=== PATIENT | male | born 1960 | race Caucasian/White ===

== ENCOUNTER 2016-07-16 11:09 | Observation (INO) | payer MEDICAID ==
[~2016-07-16] VITALS: Ht 175.3 cm; Wt 91.3 kg
[~2016-07-16 11:09] MED LIST: AMBIEN10 MG PO; KLONOPIN0.5 MG PO; MICARDIS HCT 81 EACH PO; NORVASC5 MG
[2016-07-16 11:46] LABS: BASOPHILS 0.2 % (0.0-2.0); EOSINOPHILS 0.5 % (0-7); HEMATOCRIT 45.1 % (42.0-54.0); HEMOGLOBIN 15.5 g/dL (13.5-17.5); IMMATURE GRANULOCYTES 0.2 % (0-5); LYMPHOCYTES 24.9 % (15-50); MCH 31.6 pg (26.0-34.0); MCHC 34.4 g/dL (31.0-37.0); MCV 91.9 fL (80.0-100.0); MEAN PLATELET VOLUME 10.6 fL (7.4-10.4); MONOCYTES 5.1 % (2-11); NEUTROPHILS 69.1 % (40-80); PLATELET COUNT 304 10x3/uL (130-400); RBC 4.91 10x6/uL (4.20-6.10); RDW 12.8 % (11.5-14.5); WBC 8.8 10x3/uL (4.8-10.8)
[2016-07-16 12:06] LABS: ALKALINE PHOSPHATASE 92 U/L (46-116); ALT (SGPT) 23 U/L (10-68); CALC OSMOLALITY 276 mosm/kg (275-300); CALCIUM 9.1 mg/dL (8.5-10.1); CHLORIDE - SERUM 102 mmol/L (98-107); CREATININE - SERUM 0.8 mg/dL (0.6-1.3); GLUCOSE 113 mg/dL (74-106); POTASSIUM - SERUM 3.5 mmol/L (3.5-5.1); PROTEIN - SERUM 7.5 g/dL (6.4-8.2); SODIUM 138 mmol/L (136-145); UREA NITROGEN 13 mg/dL (7-18); eGFR NON AFRICAN AMERICAN > 90 mL/min (90-120)
[2016-07-16 12:17] LABS: CREATINE KINASE 209 UL (21-232); TROPONIN-I < 0.017 ng/mL (0.000-0.060)
[2016-07-16 13:42] LABS: CREATINE KINASE 198 UL (21-232)
[2016-07-16 13:48] LABS: TROPONIN-I < 0.017 ng/mL (0.000-0.060)
--- NOTE | 2016-07-16 14:33 | NUR ---
TRANSFER FROM ER BY W/C. GUSTAVOINTED TO ROOM. CALL LIGHT IN REACH. WILL CONT. PLAN OF CARE.
[2016-07-16 14:37] VITALS: BP 146/82; BMI 28.9
[2016-07-16 19:00] VITALS: BP 122/70
[2016-07-16 19:11] LABS: CREATINE KINASE 166 UL (21-232)
[2016-07-16 19:13] LABS: TROPONIN-I < 0.017 ng/mL (0.000-0.060)
[2016-07-17] VITALS: BP 120/66
[2016-07-17 02:26] LABS: CREATINE KINASE 142 UL (21-232)
[2016-07-17 02:30] LABS: TROPONIN-I < 0.017 ng/mL (0.000-0.060)
--- NOTE | 2016-07-17 03:59 | NUR ---
PT RESTING IN BED WITH EYES CLOSED. NO DISTRESS. SR PER TELEMETRY. NPO UNTIL SEEN BY ACCOUNT SERVICES ANALYST. CPOC. CALL LIGHT IN REACH.
[2016-07-17 04:00] VITALS: BP 134/73
[2016-07-17 05:20] LABS: CALC OSMOLALITY 281 mosm/kg (275-300); CALCIUM 8.4 mg/dL (8.5-10.1); CARBON DIOXIDE 26.1 mmol/L (21.0-32.0); CHLORIDE - SERUM 105 mmol/L (98-107); CREATININE - SERUM 0.8 mg/dL (0.6-1.3); GLUCOSE 109 mg/dL (74-106); SODIUM 141 mmol/L (136-145); UREA NITROGEN 12 mg/dL (7-18); eGFR NON AFRICAN AMERICAN > 90 mL/min (90-120)
[2016-07-17 07:44] VITALS: BP 124/72
--- NOTE | 2016-07-17 08:22 | NUR ---
ASSESSMENT COMPLETED. DENIES ANY NEEDS. TELEMERTY SHOWS SR. SL TO LEFT HAND. FAMILY AT BEDSIDE WITH CALL LIGHT IN REACH
[2016-07-17 10:30] VITALS: Ht 175.3 cm; Wt 91.3 kg
--- NOTE | 2016-07-17 10:34 | NUR ---
LYING QUIETLY. AWAITING DOCTOR. CALL LIGHT IN REACH WITH SR UP. DENIES ANY NEEDS
[2016-07-17 11:25] VITALS: BP 139/68
--- NOTE | 2016-07-17 11:51 | NUR ---
LYING QUIETLY. NO NEEDS VOICED. CALL LIGHT IN REACH WITH SR UP. WILL MONITOR
[2016-07-17] MEDS ORDERED: BAYER CHEWABLE81 MG PO (13:22)
--- NOTE | 2016-07-17 14:34 | NUR ---
PT DISCHARGED. IV DCD WITH TIP INTACT. INSTRUCTIONS GIVEN TO PT AND FAMILY. TO PRIVATE CAR PER WHEEL CHAIR
== END 2016-07-17 14:45 | disposition home or self-care (01) ==
LOC: D.ER 11:09 → D.M2 13:20 → OBSVTIME 13:20 → D.M2 07-17 14:45
PROVIDERS: Family Medicine; ADMIT Family Medicine
DX: R07.9 Chest pain, unspecified (principal); I10 Essential (primary) hypertension; E87.6 Hypokalemia; Z87.891 Personal history of nicotine dependence

== ENCOUNTER 2016-07-25 14:41 | Inpatient (IN) | payer MEDICAID ==
[~2016-07-25] VITALS: Ht 175.3 cm; Wt 92.8 kg
--- NOTE | ~2016-07-25 | CN ---
PATIENT NAME:TEVIN REY MEDICAL RECORD: [id number] : 56 LOCATION:. D.2120 ADMIT DATE: 07/25/16 ACCOUNT: [id number] CONSULTING PHYSICIAN: EDUARDO DC MD REFERRING PHYSICIAN: NIRMAL HELLER DO DATE OF CONSULTATION: 07/25/2016 Cardiology Consultation ADMITTING DIAGNOSIS: Chest pain compatible with angina. HISTORY OF PRESENT ILLNESS: Mr. Rey presented last week with ongoing chest pain. He was discharged for followup with stress testing; however, has continued to have chest pain. He had quite severe episode of chest pain today with exertion. His EKG is with no acute ST-T abnormalities. Troponin is pending. PHYSICAL EXAMINATION: GENERAL APPEARANCE: Well-nourished, well-developed, appears stated age. Level of distress, comfortable. PSYCHIATRIC: Mental status, alert, normal affect. Orientation, oriented to time, place and person. EYES: Lids and conjunctiva, noninjected. No discharge, no pallor. ENT: Lips, teeth, gums, normal dentition. Oropharynx, no cyanosis, no pallor. NECK: Carotid arteries, bilateral normal upstroke, no bruits, no thrills. JUGULAR VEINS: No jugular venous pressure or distention. CERVICAL LYMPH NODES: Nontender, nonenlarged. THYROID: Not enlarged. Nontender. No nodules. LUNGS: Respiratory effort, unlabored. CHEST: Normal curvature. No thoracic deformity. No chest wall tenderness. Percussion, resonant. Auscultation, clear. No wheezes, no rales, no rhonchi. CARDIOVASCULAR: Precordial exam, nondisplaced. No heaves or pericardial thrills. Rate and rhythm, regular. Heart sounds, normal S1, normal S2. No S3, no gallop, no rub. Systolic murmur, not heard. Diastolic murmur, not heard. EXTREMITIES: No cyanosis, no edema. Peripheral pulses, full and equal in all extremities, except as noted. No bruits appreciated. ABDOMEN: Soft, nondistended. Normal aorta. No bruit. Nontender. No masses. Liver, nontender, no hepatomegaly. Spleen, nontender, no splenomegaly. MUSCULOSKELETAL: No joint tenderness. No joint swelling. No erythema. NEUROLOGICAL: Normal gait, normal strength, normal tone. SKIN: Warm and dry. REVIEW OF SYSTEMS: The patient reports easy bruising but reports no swollen glands. The patient reports no fever, no night sweats, no significant weight gain, no significant weight loss. No significant exercise tolerance. The patient reports no dry eyes, no irritation, no vision change. Patient reports no difficulty hearing and no ear pain. Patient reports no frequent nose bleeds or nose and sinus problems. Patient reports on arm pain on exertion. No shortness of breath while lying down. No history of heart murmur. Patient reports no cough, no wheezing or coughing up blood. Patient reports no abdominal pain, no vomiting. Normal appetite. No diarrhea and not vomiting blood. No nausea and no constipation. Patient reports no incontinence. No difficulty urinating. No hematuria. No increased frequency. Patient reports no muscle aches. No weakness, no arthralgias, no back pain. No swelling of the extremities. Patient reports no abnormal mole, no jaundice, no rashes. Reports CONSULT REPORT [id number] TEVIN REY no loss of consciousness. No weakness and no numbness. No seizures, dizziness, or headaches. The patient reports no depression, no sleep disturbance, feeling safe in a relationship and no alcohol abuse. Patient reports on fatigue. Reports no runny nose or sinus pressure. No itching, no hives, and no frequent sneezing. OVERALL IMPRESSION: Ongoing chest pain in a worsening fashion. At this time, we will proceed with coronary angiography. Further care depends upon findings of the angiography. TRANSINT:[id number] Voice Confirmation ID: [id number] DOCUMENT ID: [id number] EDUARDO DC MD CC: [id number] DICTATION DATE: 07/25/161656 SMOKING TOBACCO CUTTER OPERATOR: 07/25/16 [address] [facility] [place] [id number] [place] [address]
--- NOTE | ~2016-07-25 | DS ---
PATIENT:TEVIN REY :56 MEDICAL RECORD: [id number] DISCHARGE SUMMARY ADMISSION DATE: 07/25/16 DISCHARGE DATE: 07/26/16 DISCHARGE DIAGNOSES: 1. Angina. 2. Coronary artery disease. 3. Percutaneous transluminal coronary angioplasty stent to left anterior descending on this admission. 4. Hypertension. 5. Hyperlipidemia. HOSPITAL COURSE: Mr. Rey presents with anginal symptomatology, found to have significant disease of the LAD, underwent successful PTCA stent of the LAD, had an uneventful postop course. He was discharged home with the addition of aspirin, Plavix, Pravachol to his medical regimen. He will follow up with [facility] in 1 month. TRANSINT:[id number] Voice Confirmation ID: [id number] DOCUMENT ID: [id number] EDUARDO DC MD CC: [id number] DICTATION DATE: 07/26/161054 LUSTER APPLICATOR: 07/26/16 2300 DIS IN 07/26/16 [facility] [address] [place] [address]
--- NOTE | ~2016-07-25 | HEMODYNAMI ---
PATIENT:TEVIN FERNANDES MEDICAL RECORD: [id number] : 56 [address] CL[address]ICT# [id number] ADMISSION DATE: 07/25/16 Generatedon:07/26/201610:57 Patient name: TEVIN FERNANDES Patient #: [id number] SSN: DO B: 1960 Date of study: 07/26/2016 Page: Of Hemodynamic Procedure Report Patient Data Patient Demographics Procedure consent was obtained First Name: TEVIN Gender: Male Last Name: DENA : 1960 [facility] Initial: Marii Rodriguez Age: 56 year(s) Patient #: [id number] Race: Unknown Additional ID: [id number] Contact details [address]: [address] [place] [address] State: [place] City: [place] Zip code: [address] Past Medical History Allergies: No known allergies Admission Admission Data Admission Date: 07/25/2016 Admission Time: 14:41 Room #: 2120 Procedure Procedure Types Cath Procedure Diagnostic Procedure LHC [facility] w/Coronaries FFR/IVUS Intra-Coronary IVUS Initial PCI Procedure Coronary Stent Initial Miscellaneous Procedures Moderate Sedation up to 30 minutes Procedure Description Procedure Date Procedure Date: 07/26/2016 Procedure Start Time: 10:33 Procedure End Time: 10:55 Procedure Staff Name Function Rey Nicole MD Performing Physician Kelsie North RT Scrub Dayday Hart RN Nurse Archie Cortez RT Monitor Procedure Data Cath Procedure Fluoroscopy Diagnostic fluoroscopy Total fluoroscopy Time: 7.6 time: 7.6 min min Diagnostic fluoroscopy Total fluoroscopy dose: 991 dose: 991 mGy mGy Contrast Material Contrast Material Type Amount (ml) Isovue 300 135 Entry Location Entry Primary Successful Side Size Upsize Upsize Entry Closure Goldberg ccessful Closure Location (Fr) 1 (Fr) 2 (Fr) Remarks Device Remarks Radial Right 6 Fr Mechanical artery Short Compression Estimated blood loss: 10 ml Diagnostic catheters Device Type Used For End Catheter Placement Terumo 5Fr Canton 110cm Procedure catheter Diagnostic Infinity 5Fr Procedure JL 3.5 catheter Procedure Complications No complications Procedure Medications Medication Administration Route Dosage Oxygen NC 2 l/min Heparin Flush Bag added to field 2 bags (1000units/500ml NS) 0.9% NaCl I.V. 100 ml/hr Radial Cocktail added to field 1 syringe (Verapomil 2mg/Nitro 400mcg/Heparin 1500units) Fentanyl I.V. 50 mcg Versed I.V. 1 mg Radial Cocktail I.A. 1 syringe (Verapomil 2mg/Nitro 400mcg/Heparin 1500units) Heparin Bolus I.V. 4000 units Fentanyl I.V. 50 mcg Versed I.V. 1 mg Plavix P.O. 75 mg Hemodynamics Rest Heart Rate: 52 (bpm) Snapshots Pre Cath Intra NCS Post Cath Vital Signs Time Heart Resp SPO2 etCO2 DX0bpsd NIBP (mmHg) Rhythm Pain Sedation Rate (ipm) (%) (mmHg) (mmHg) Status Level (bpm) 10:19:55 56 20 100 0 0 134/81(112) NSR 0 (11) 10(A) , No pain 10:24:09 52 19 100 0 0 138/80(94) NSR 0 (11) 10(A) , No pain 10:28:27 59 17 98 0 0 125/75(87) NSR 0 (11) 10(A) , No pain 10:32:39 57 17 96 0 0 129/72(98) NSR 0 (11) 10(A) , No pain 10:36:51 65 18 92 0 0 101/61(92) NSR 0 (11) 9(A) , No pain 10:40:55 67 19 95 0 0 117/71(98) NSR 0 (11) 9(A) , No pain 10:45:08 63 17 95 0 0 113/57(98) NSR 0 (11) 9(A) , No pain 10:49:21 61 19 94 0 0 108/58(92) NSR 0 (11) 9(A) , No pain 10:53:30 67 18 96 0 0 108/60(78) NSR 0 (11) 9(A) , No pain 10:56:06 63 16 97 0 0 113/63(86) NSR 0 (11) 10(A) , No pain Medications Time Medication Route Dose Verified Delivered Reason Note s Effectiveness by by 10:23:54 Oxygen NC 2 l/min Dayday Naylor Per physician Tanner Hrat RN RN 10:24:06 Heparin Flush added 2 bags Dayday Naylor used for Bag to Tanner Hart RN procedure (1000units/500ml field RN NS) 10:24:18 0.9% NaCl I.V. 100 Dayday Naylor Per physician ml/hr Tanner Hart RN RN 10:24:39 Radial Cocktail added 1 Dayday Naylor used for (Verapomil to syringe Tanner Hart RN procedure 2mg/Nitro field RN 400mcg/Heparin 1500units) 10:33:24 Fentanyl I.V. 50 mcg Dayday Naylor for sedation Tanner Hart RN RN 10:33:31 Versed I.V. 1 mg Dayday Naylor for sedation Tanner Hart RN RN 10:34:42 Radial Cocktail I.A. 1 Dayday Rey for (Verapomil syringe Tanner Nicole MD vasodilation 2mg/Nitro RN 400mcg/Heparin 1500units) 10:46:16 Heparin Bolus I.V. 4000 Dayday Naylor for units Tanner Hart RN anticoagulation RN 10:46:50 Fentanyl I.V. 50 mcg Dayday Naylor for sedation Tanner Hart RN RN 10:46:54 Versed I.V. 1 mg Dayday Naylor for sedation Tanner Hart RN RN 10:55:14 Plavix P.O. 75 mg Dayday Naylor for Tanner Hart RN antiplatelet RN therapy Procedure Log Time Note 9:52:42 Dayday Hart RN sent for patient. Start room use. 10:05:10 Time tracking: Call back 10:05:14 Plan of Care:Hemodynamics will remain stable., Cardiac rhythm will remain stable., Comfort level will be maintained., Respiratory function will remain adequate., Patient/ family verbilizes understanding of procedure., Procedure tolerated without complication., Recovers from procedure without complications.. 10:11:36 Patient received from PCU to CCL 1 Alert and oriented. Tansferred to table in Supine position. 10:11:37 Warm blankets applied, and mary alice hugger turned on for patient comfort. 10:11:37 Correct patient and procedure confirmed by team. 10:11:38 Signed procedure consent form obtained from patient. 10:11:39 ECG and BP/O2 sat monitors applied to patient. 10:11:40 Full Disclosure recording started 10:18:42 Vital chart was started 10:23:54 Oxygen 2 l/min NC was administered by Dayday Hart RN; Per physician; 10:23:59 Baseline sample Acquired. 10:24:02 Rhythm: sinus rhythm 10:24:06 Heparin Flush Bag (1000units/500ml NS) 2 bags added to field was administered by Dayday Hart RN; used for procedure; 10:24:10 H&P Date Dictated: 07/25/2016 Within 30 days and on chart.. 10:24:11 Pre-procedure instructions explained to patient. 10:24:11 Pre-op teaching completed and patient verbalized understanding. 10:24:13 Family in patients room. 10:24:14 Patient NPO since Midnight. 10:24:18 0.9% NaCl 100 ml/hr I.V. was administered by Dayday Hart RN; Per physician; 10:24:22 Patient allergic to No known allergies 10:24:24 Is the patient allergic to Iodine/contrast media? No. 10:24:26 Is patient on blood thinner?Yes 10:24:28 ACC The patient was administered the following blood thiners within the last 24 hours: ACCPlavix 10:24:30 Patient diabetic? No. 10:24:36 Previous problem with sedation/anesthesia? No ? 10:24:37 Snore? Yes 10:24:38 Sleep apnea? No 10:24:38 Deviated septum? No 10:24:39 Radial Cocktail (Verapomil 2mg/Nitro 400mcg/Heparin 1500units) 1 syringe added to field was administered by Dayday Hart RN; used for procedure; 10:24:45 Opens mouth fully? Yes 10:24:46 Sticks out tongue? Yes 10:24:48 Airway obstruction? No ? 10:24:50 Dentures? No ? 10:24:52 Modified Andrew's test Ulnar < 7 seconds 10:24:54 Patient pain scale 0/10 ?. 10:24:58 IV patent on arrival in right hand with 0.9% NaCl at [facility]. 10:26:51 Lab Result : Creatinine 0.8 mg/dl 10::51 Lab Result : BUN 15 mg/dl 10::51 Lab Result : Hemoglobin 14.7 g/dl 10::51 Lab Result : Hematocrit 44.4 % 10::56 Lab results completed and on chart. 10::59 Right Radial & Right Groin area was prepped with chlora-prep and draped in sterile fashion 10:27:00 Alarms reviewed by R. N. 10:27:00 Sharps counted by scrub and verified by R.N. 10:27:03 Use device set Radial Dx 10:27:04 Tegaderm 4 x 4 opened to sterile field. 10:27:04 Acist Manifold opened to sterile field. 10:27:05 Acist Hand Control opened to sterile field. 10:27:06 Acist Syringe opened to sterile field. 10:27:06 Medline Cath Pack opened to sterile field. 10:27:07 Bag Decanter opened to sterile field. 10:27:07 Terumo 6Fr Slender Glidesheath opened to sterile field. 10:27:07 St Cheko 260cm J .035 wire opened to sterile field. 10:30:37 Physician paged 10::41 Physician arrived 10::42 --------ALL STOP TIME OUT------ 10:30:42 Final Timeout: patient, procedure, and site verified with staff and physician. All members of the team are in agreement. 10::44 Right Radial & Right Groin site verified by team. 10:30:47 Physical assessment completed. ASA score P 2 - A patient with mild systemic disease as per Rey Nicole MD. 10:31:38 Sedation plan: IV Moderate Sedation Versed, Fentanyl 10::45 Zero performed for pressure channel P1 10:33:24 Fentanyl 50 mcg I.V. was administered by Dayday Hart RN; for sedation; 10::31 Versed 1 mg I.V. was administered by Dayday Hart RN; for sedation; 10:33:39 Procedure started. 10:33:44 Local anesthetic to right radial artery with Lidocaine 2% by Rey Nicole MD.INITIAL ACCESS ONLY 10:34:31 A 6 Fr Short sheath was inserted into the Right Radial artery 10:34:42 Radial Cocktail (Verapomil 2mg/Nitro 400mcg/Heparin 1500units) 1 syringe I.A. was administered by Rey Nicole MD; for vasodilation; 10:35:32 A Terumo 5Fr Canton 110cm catheter was advanced over the wire and used for Procedure. 10:35:46 LV gram done using MAIER 10:36:01 Injector settings: Ml/sec: 5, Volume: 15, 10:36:14 EF : 60 % 10:36:20 LCA angiography performed. 10:38:00 RCA angiography performed. 10:38:06 Catheter exchanged over wire. 10:38:10 A Diagnostic Infinity 5Fr JL 3.5 catheter was advanced over the wire and used for Procedure. 10:39:21 RCA angiography performed. 10:40:03 Scioderm BasixCompak Inflation Kit opened to sterile field. 10:40:04 León Whisper J 300cm 0.014 guide wire opened to sterile field. 10:40:08 Ashley Tetlin Eagleye IVUS Catheter opened to sterile field. 10:40:39 Cordis 6FR XBLAD 3.5 guide catheter opened to sterile field. 10:40:42 Catheter removed. 10:40:50 6 Fr xblad 3.5 guide catheter was inserted over the wire 10:41:52 whisper wire advanced. 10:42:31 Wire advanced across lesion. 10:42:35 IVUS catheter advanced over wire. 10:43:03 IVUS pass to LAD lesion performed. 10:46:01 IVUS catheter removed over wire. 10:46:16 Heparin Bolus 4000 units I.V. was administered by Dayday Hart RN; for anticoagulation; 10:46:50 Fentanyl 50 mcg I.V. was administered by Dayday Hart RN; for sedation; 10:46:54 Versed 1 mg I.V. was administered by Dayday Hart RN; for sedation; 10:48:29 Inflation Number: 1 A Medtronic Integrity 3.5 X 22 stent was prepped and advanced across the Prox LAD. The stent was deployed at 13 CHINO for 0:10 (min:sec). 10:49:38 Stent catheter was removed intact over wire. 10:51:13 Inflation Number: 1 A Medtronic Integrity 3.5 X 15 stent was prepped and advanced across the Mid LAD. The stent was deployed at 13 CHINO for 0:10 (min:sec). 10:51:59 Stent catheter was removed intact over wire. 10:52:02 Wire removed. 10:52:03 Guide catheter removed. 10:52:30 Terumo TR Band Standard opened to sterile field. 10:52:39 Sheath removed intact; hemostasis achieved with Mechanical Compression to the Right Radial artery. 10:52:42 Procedure ended.(Physican Out) 10:52:57 Fluoroscopy time 07.60 minutes. 10:53:08 Fluoroscopy dose: 991 mGy 10:53:08 Flurop Dose total: 991 10:53:11 Contrast amount:Isovue 300 135ml. 10:53:12 Sharps counted by scrub and verified by R.N. 10:53:16 TR band inflated with 12cc of air. 10:53:17 Insertion/operative site no bleeding no hematoma. 10:53:21 Post right radial artery:stable, clean and dry 10:53:28 Post Procedure Pulses reassessed and unchanged 10:53:35 Post-procedure physical assessment completed. ASA score P 2 - A patient with mild systemic disease as per Rey Nicole MD. 10:53:38 Post procedure rhythm: unchanged. 10:53:40 Estimated blood loss: 10 ml 10:53:42 Post procedure instruction explained to patient.Patient verbalizes understanding. 10:53:42 Patient needs reinforcement of post procedure teaching. 10:54:39 Procedure type changed to Cath procedure, Diagnostic procedure, LHC, LHC w/Coronaries, FFR/IVUS, Intra-Coronary IVUS Initial, PCI procedure, Coronary Stent Initial, Miscellaneous Procedures, Moderate Sedation up to 30 minutes 10:55:07 Procedure and supply charges have been captured, reviewed, submitted and are correct. 10:55:10 Procedure Complication : No complications 10:55:13 Vital chart was stopped 10:55:14 Plavix 75 mg P.O. was administered by Dayday Hart RN; for antiplatelet therapy; 10:55:14 See physician's report for complete and final results. 10:55:15 Report given to PCU. 10:55:18 Patient transfered to PCU with Stretcher. 10:55:20 Procedure ended. 10:55:20 Full Disclosure recording stopped 10:55:59 End room use (Document Last) Intervention Summary Intervention Notes Time ActionType Lesion and Equipment Action# Pressure Duration Attributes Used 10:48:29 Place stent Prox LAD Medtronic 1 13 00:10 Integrity 3.5 X 22 stent 10:51:13 Place stent Mid LAD Medtronic 1 13 00:10 Integrity 3.5 X 15 stent Device Usage Item Name Manufacture Quantity Catalog Hospital Part Current Minimal Lot# / Number Charge Number Stock Stock Serial# Code Tricia 4 3M 1 [id number] 298252 325182 480048 5 x 4 Acist Acist 1 70306 318932 387249 113821 5 Manifold Medical Systems Sightly Acist Hand Acist 1 83675 964328 982173 798229 5 Control Medical Systems Inc Acist Acist 1 68117 819493 520082 929258 20 Syringe Medical Systems Inc Medline Cardinal 1 [id number] 737214 88731 163470 5 Cath Pack Health Bag Microtek 1 2001S 109909 04241 629894 5 doForms Inc. Terumo 6Fr Terumo 1 [id number] 727093 034709 450064 [address] Cheko St Cheko 1 840883 577801 913234 294616 30 260cm J .035 wire Terumo 5Fr Terumo 1 405013 334717 638242 735174 5 Canton 110cm catheter Diagnostic Cardinal 1 [id number] 977481 703433 932648 5 Osprey Data 5Fr JL 3.5 catheter Merit Merit 1 [id number] 589771 330704 903043 15 BasixCompak Medical Inflation Kit León León 1 [id number] 834086 846412 693014 5 Whisper J Vascular 300cm 0.014 guide wire Ashley Ashley 1 [id number] 003597 317766 687561 8 Tetlin Eagleye IVUS Catheter Cordis 6FR Cardinal 1 [id number] 111239 414240 750325 10 XBLAD 3.5 Health guide catheter Medtronic Medtronic 1 [id number] 888856 113983 0 [id number] Integrity 3.5 X 22 stent Medtronic Medtronic 1 [id number] 659016 904496 819734 8 [id number] Integrity 3.5 X 15 stent Terumo TR Terumo 1 [id number] 762348 717031 430102 40 Band Standard Signature Audit [place] Stage Time Signature Unsigned Intra-Procedure 07/26/2016 Archie Cortez 10:57:46 AM RT(R) Signatures Monitor : rAchie Cortez RT Signature : Date : Time : [place] [id number] [facility] [place] [address]
--- NOTE | ~2016-07-25 | OP ---
PATIENT NAME: TEVIN FERNANDES MEDICAL RECORD: [id number] :56 LOCATION:D.M2 D.0 ADMISSION DATE:07/25/16 SURGEON: EDUARDO DC MD DATE OF OPERATION: 07/26/2016 PROCEDURES: 1. PTCA stent LAD. 2. Intravascular ultrasound of the LAD. 3. Left heart catheterization. 4. Selective coronary angiography. 5. Left ventriculogram. INDICATION: Angina, unstable. PROCEDURE IN DETAIL: After informed consent was obtained and after detailed explanation of risks, benefits as well as alternative therapies, the patient elected to proceed with angiogram and angioplasty. The right radial area was prepped and draped in normal sterile fashion. The right radial artery was cannulated via modified Seldinger technique with placement of 6-Eritrean sheath. All catheters exchanged through sheath. At the end of the case, all catheters removed, sheaths also removed. Hemostasis obtained via TR band and direct compression. The patient tolerated the procedure well with no complication and returned back to the room in stable hemodynamic condition. FINDINGS: The left ventriculogram was performed in the standard 30-degree MAIER view, reveals good cardiac wall motion throughout all segments. Overall ejection fraction is 60%. SELECTIVE CORONARY ANGIOGRAPHY: 1. Left main is with no significant angiographic disease. 2. Left anterior descending has a 3% stenosis throughout the proximal vessel confirmed by intravascular ultrasound. 3. Left circumflex shows mild irregularities, but no flow-limiting stenosis. 4. Right coronary has mild irregularities, but no flow-limiting stenosis. PTCA STENT OF THE LAD: The stents used were 3.5 x 22 and 3.5 x 15, both Integrity stents. Result was 0% residual stenosis. OVERALL IMPRESSION: Successful percutaneous transluminal coronary angioplasty stent of the left anterior descending going from 73% initial stenosis to 0% residual. TRANSINT:[id number] Voice Confirmation ID: [id number] DOCUMENT ID: [id number] EDUARDO DC MD CC: [id number] DICTATION DATE: 07/26/16 1057 TANGLED YARN SPOOL STRAIGHTENER: 07/26/16 1540 ADM IN [place] [id number] [place] [address]
[~2016-07-25 14:41] MED LIST changes: +BAYER CHEWABLE81 MG PO; -NORVASC5 MG; +NORVASC5 MG PO
--- NOTE | 2016-07-25 14:58 | NUR ---
TRANSFER FROM ADMISSIONS BY W/C. OREINTED TO ROOM. CALL LIGHT IN REACH. WILL CONT. PLAN OF CARE.
[2016-07-25 15:12] VITALS: BP 136/84; Ht 175.3 cm; Wt 92.8 kg
[2016-07-25 17:04] LABS: BASOPHILS 0.4 % (0-2); EOSINOPHILS 1.9 % (0-7); HEMATOCRIT 44.4 % (42.0-54.0); HEMOGLOBIN 14.7 g/dL (13.5-17.5); IMMATURE GRANULOCYTES 0.1 % (0-5); MCH 31.1 pg (26.0-34.0); MCHC 33.1 g/dL (31.0-37.0); MCV 94.1 fL (80.0-100.0); MEAN PLATELET VOLUME 10.6 fL (7.4-10.4); MONOCYTES 7.6 % (2-11); PLATELET COUNT 272 10x3/uL (130-400); RBC 4.72 10x6/uL (4.20-6.10); RDW 12.9 % (11.5-14.5); WBC 9.9 10x3/uL (4.8-10.8)
[2016-07-25 17:20] LABS: ALBUMIN 3.8 g/dL (3.4-5.0); ALKALINE PHOSPHATASE 89 U/L (46-116); ALT (SGPT) 24 U/L (10-68); BILIRUBIN - TOTAL 0.52 mg/dL (0.2-1.3); CALC OSMOLALITY 288 mosm/kg (275-300); CALCIUM 8.2 mg/dL (8.5-10.1); CARBON DIOXIDE 25.7 mmol/L (21.0-32.0); CHLORIDE - SERUM 109 mmol/L (98-107); CREATININE - SERUM 0.8 mg/dL (0.6-1.3); GLUCOSE 89 mg/dL (74-106); POTASSIUM - SERUM 3.2 mmol/L (3.5-5.1); PROTEIN - SERUM 7.1 g/dL (6.4-8.2); SODIUM 145 mmol/L (136-145); UREA NITROGEN 15 mg/dL (7-18); eGFR NON AFRICAN AMERICAN > 90 mL/min (90-120)
[2016-07-25 17:30] LABS: CKMB 1.9 U/L (0.0-3.6); CREATINE KINASE 163 UL (21-232)
[2016-07-25 17:37] LABS: TROPONIN-I < 0.017 ng/mL (0.000-0.060)
[2016-07-25 19:00] VITALS: BP 122/69
--- NOTE | 2016-07-25 19:00 | NUR ---
RECEIVED REPORT AND ASSUMED PT CARE FROM DAY SHIFT NURSE @ THIS TIME.
--- NOTE | 2016-07-25 21:09 | NUR ---
PT RESTING SOUNDLY WITHOUT C/O OR DISTRESS NOTED. RT HAND WITH NS @ 100 ML/HR. SITE APPEARS WNL. DISCUSSED WITH PT NPO STATUS, HE VERBALIZES UNDERSTANDING. CALL LIGHT WITHIN REACH. REMAINS NSR ON TELE, HR 70. WILL CONT TO MONITOR.
[2016-07-25 23:18] LABS: CKMB 1.6 U/L (0.0-3.6); CREATINE KINASE 137 UL (21-232)
[2016-07-25 23:19] LABS: TROPONIN-I < 0.017 ng/mL (0.000-0.060)
[2016-07-26] VITALS: BP 119/64
[2016-07-26 04:26] VITALS: BP 127/73
[2016-07-26 05:29] LABS: CKMB 1.3 U/L (0.0-3.6); CREATINE KINASE 115 UL (21-232); TROPONIN-I < 0.017 ng/mL (0.000-0.060)
--- NOTE | 2016-07-26 07:30 | NUR ---
RECEIVED PT IN BED AAOX4 RESP UNLABORED PT DENIES ANY NEEDS OR DISCOMFORT AT THIS TIME
[2016-07-26 07:59] VITALS: BP 125/76
--- NOTE | 2016-07-26 08:57 | NUR ---
PREOP MEDS GIVEN AT THIS TIME PT TOLERATED WELL
--- NOTE | 2016-07-26 09:00 | NUR ---
TO TAKER DOWN VIA BED IN STABLE CONDITION
[2016-07-26 12:40] VITALS: BP 96/58
[2016-07-26 15:40] VITALS: BP 108/58
--- NOTE | 2016-07-26 17:45 | NUR ---
REVIEWED DISCHARGE INSTRUCTIONS WITH PT AND BOTH STATE UNDERSTANDING COPY GIVEN SALINE LOCK DCD TO RT HAND WITHOUT REDNESS OR EDEMA AT SITE IV CATHETER TIP INTACT PT DISCHARGED HOME LEFT UNIT IN STABLE CONDITION WITH ALL PERSONAL BELONGINGS
== END 2016-07-26 17:45 | disposition home or self-care (01) | DRG 249 ==
LOC: D.M2 14:41
PROVIDERS: Internal Medicine Interventional Cardiology; ADMIT Family Medicine
PROC: B2111ZZ Fluoroscopy of Multiple Coronary Arteries using Low Osmolar Contrast (ICD-10-PCS; 2016-07-26)
PROC: B2151ZZ Fluoroscopy of Left Heart using Low Osmolar Contrast (ICD-10-PCS; 2016-07-26)
PROC: 02703EZ Dilation of Coronary Artery, One Artery with Two Intraluminal Devices, Percutaneous Approach (ICD-10-PCS; principal; 2016-07-26 10:30)
PROC: 4A023N7 Measurement of Cardiac Sampling and Pressure, Left Heart, Percutaneous Approach (ICD-10-PCS; 2016-07-26 10:30)
DX: I25.110 Atherosclerotic heart disease of native coronary artery with unstable angina pectoris (principal); I10 Essential (primary) hypertension; E78.5 Hyperlipidemia, unspecified; E87.6 Hypokalemia; Z87.891 Personal history of nicotine dependence

== ENCOUNTER → 2017-02-13 07:27 | Outpatient (CLI) | payer MEDICAID ==
--- NOTE | ~2017-02-13 | HEMODYNAMI ---
PATIENT:TEVIN FERNANDES MEDICAL RECORD: [id number] : 56 LOCATION:D.CAT ADMISSION DATE: 02/13/17 Generatedon:02/13/201710:03 Patient name: TEVIN FERNANDES Patient #: [id number] SSN: DO B: 1960 Date of study: 02/13/2017 Page: Of Hemodynamic Procedure Report Patient Data Patient Demographics Procedure consent was obtained First Name: TVEIN Gender: Male Last Name: DENA : 1960 [facility] Initial: Marii R Age: 56 year(s) Patient #: [id number] Race: Unknown Additional ID: [id number] Contact details [address]: [address] [place] [address] State: [place] City: [place] Zip code: [address] Past Medical History Allergies: No known allergies Admission Admission Data Admission Date: 02/13/2017 Admission Time: 7:27 Lab Results Lab Result Date: 02/13/2017 Lab Result Time: 0:00 Biochemistry Name Units Result Min Max BUN mg/dl 20 --(----)*- 7 18 Creatinine mg/dl 0.8 --(-*--)-- 0.6 1.3 CBC Name Units Result Min Max Hemoglobin g/dl 15 --(-*--)-- 13.5 17.5 Procedure Procedure Types Cath Procedure Diagnostic Procedure [facility] w/Coronaries Miscellaneous Procedures Moderate Sedation up to 30 minutes Procedure Description Procedure Date Procedure Date: 02/13/2017 Procedure Start Time: 9:38 Procedure End Time: 9:58 Procedure Staff Name Function Yan Thomas MD Ordering physician Rey Nicole MD Performing Physician Kellen Ho RT Scrub Siva Mae RN Nurse Lawanda Kiran RT Monitor Procedure Data Cath Procedure Fluoroscopy Diagnostic fluoroscopy Total fluoroscopy Time: 7 time: 7 min min Diagnostic fluoroscopy Total fluoroscopy dose: dose: 1385 mGy 1385 mGy Contrast Material Contrast Material Type Amount (ml) Isovue 300 150 Entry Location Entry Primary Successful Side Size Upsize Upsize Entry Closure Goldberg ccessful Closure Location (Fr) 1 (Fr) 2 (Fr) Remarks Device Remarks Radial Right 6 Fr Mechanical artery Short Compression Estimated blood loss: 5 ml Diagnostic catheters Device Type Used For End Catheter Placement Diagnostic Terumo 5Fr Multi-vessel [place] 110cm catheter Angiography Procedure Complications No complications Procedure Medications Medication Administration Route Dosage Oxygen NC 2 l/min Lidocaine 2% added to field 20 Heparin Flush Bag added to field 2 bags (1000units/500ml NS) 0.9% NaCl I.V. 100 ml/hr Versed I.V. 1 mg Fentanyl I.V. 50 mcg Radial Cocktail added to field 1 syringe (Verapomil 2mg/Nitro 400mcg/Heparin 1500units) Versed I.V. 1 mg Fentanyl I.V. 50 mcg Versed I.V. 1 mg Fentanyl I.V. 50 mcg Heparin Bolus I.V. 4000 units Hemodynamics Rest HGB: 15 (g/dl) Heart Rate: 55 (bpm) Pressure Samples Time Site Value (mmHg) Purpose Heart Use Rate(bpm) 9:41 LV 114/7,34 Snapshot 63 Snapshots Pre Cath Intra NCS Post Cath Vital Signs Time Heart Resp SPO2 etCO2 NIBP (mmHg) Rhythm Pain Sedation Rate (ipm) (%) (mmHg) Status Level (bpm) 9:24:50 54 13 100 25 124/76(114) NSR 0 (11) 10(A) , No pain 9:29:06 59 12 100 3.7 118/77(92) NSR 0 (11) 10(A) , No pain 9:33:18 61 13 100 34.9 122/68(83) NSR 0 (11) 10(A) , No pain 9:37:28 62 12 98 35.6 114/75(90) NSR 0 (11) 10(A) , No pain 9:41:44 66 14 94 33.3 114/63(97) NSR 0 (11) 10(A) , No pain 9:45:58 66 14 91 31.8 106/64(82) NSR 0 (11) 9(A) , No pain 9:50:10 63 14 97 30.3 116/62(97) NSR 0 (11) 9(A) , No pain 9:54:20 62 16 98 22.7 126/79(118) NSR 0 (11) 9(A) , No pain 9:58:36 62 15 99 30.3 127/78(120) NSR 0 (11) 10(A) , No pain Medications Time Medication Route Dose Verified Delivered Reason Notes Effectiveness by by 9:28:12 Oxygen NC 2 l/min Rey Buffie used for Bonnie Mae RN procedure 9:28:20 Lidocaine 2% added 20ml Rey Rey for local to vial Bonnie Nicole MD anesthetic field 9:28:26 Heparin Flush added 2 bags Rey Rey used for Bag to Bonnie Nicole MD procedure (1000units/500ml field NS) 9:28:34 0.9% NaCl I.V. 100 Rey Buffie Per physician ml/hr Bonnie Mae RN 9:37:42 Versed I.V. 1 mg Rey Priceie for sedation Bonnie Mae RN 9:38:53 Fentanyl I.V. 50 mcg Rey Priceie for sedation Bonnie Mae RN 9:40:20 Radial Cocktail added 1 Rey Rey used for (Verapomil to syringe Bonnie Nicole MD procedure 2mg/Nitro field 400mcg/Heparin 1500units) 9:40:32 Versed I.V. 1 mg Rey Buffie for sedation Bonnie Mae RN 9:40:42 Fentanyl I.V. 50 mcg Rey Priceie for sedation Bonnie Mae RN 9:42:42 Versed I.V. 1 mg Rey Buffie for sedation Bonnie Mae RN 9:42:50 Fentanyl I.V. 50 mcg eRy Buffie for sedation Bonnie Mae RN 9:47:15 Heparin Bolus I.V. 4000 Rey Buffie for verif ied units Bonnie Mae RN anticoagulation with Procedure Log Time Note 9:00:00 Kellen Ho RT(R) sent for patient. Start room use. 9:17:06 Time tracking: Regular hours 9:17:10 Plan of Care:Hemodynamics will remain stable., Cardiac rhythm will remain stable., Comfort level will be maintained., Respiratory function will remain adequate., Patient/ family verbilizes understanding of procedure., Procedure tolerated without complication., Recovers from procedure without complications.. 9:17:15 Patient received from Pre/Post Procedure Room to CCL 2 Alert and oriented. Chansferred to table in Supine position. 9:17:16 Warm blankets applied, and mary alice hugger turned on for patient comfort. 9:17:16 Correct patient and procedure confirmed by team. 9:17:18 Signed procedure consent form obtained from patient. 9:23:44 Vital chart was started 9::23 ECG and BP/O2 sat monitors applied to patient. 9:26:24 Baseline sample Acquired. 9::28 Rhythm: sinus rhythm 9::30 Full Disclosure recording started 9:26:34 H&P Date Dictated: 02/13/2017 Within 30 days and on chart., H&P Addendum completed by physician on day of procedure. (MUST COMPLETE FOR ALL OUTPATIENTS). 9:26:35 Pre-procedure instructions explained to patient. 9:26:35 Pre-op teaching completed and patient verbalized understanding. 9:26:36 Family in waiting room. 9:26:38 Patient NPO since Midnight. 9:26:54 Is the patient allergic to Iodine/contrast media? No. 9:26:57 Was the patient premedicated? No 9:26:59 Is patient on blood thinner?Yes 9:27:01 ACC The patient was administered the following blood thiners within the last 24 hours: ACCPlavix 9:27:03 Patient diabetic? No. 9:27:06 Previous problem with sedation/anesthesia? No ? 9:27:07 Snore? Yes 9:27:08 Sleep apnea? No 9:27:09 Deviated septum? No 9:27:10 Opens mouth fully? Yes 9:27:11 Sticks out tongue? Yes 9:27:12 Airway obstruction? No ? 9:27:17 Dentures? No ? 9:27:22 Pre procedure: right dorsailis pedis pulse 2+ Normal; easily identifiable; not easily obliterated 9:27:24 Pre procedure: left dorsailis pedis pulse 2+ Normal; easily identifiable; not easily obliterated 9:27:26 Patient pain scale 0/10 ?. 9:27:32 IV patent on arrival in left forearm with 0.9% NaCl at O. 9:28:12 Oxygen 2 l/min NC was administered by Siva Mae RN; used for procedure; 9:28:20 Lidocaine 2% 20ml vial added to field was administered by Rey Nicole MD; for local anesthetic; 9:28:26 Heparin Flush Bag (1000units/500ml NS) 2 bags added to field was administered by Rey Nicole MD; used for procedure; 9:28:34 0.9% NaCl 100 ml/hr I.V. was administered by Siva Mea RN; Per physician; 9:36:08 Lab results completed and on chart. 9:36:12 Right Radial & Right Groin area was prepped with chlora-prep and draped in sterile fashion 9:36:12 Alarms reviewed by R. N. 9:36:13 Sharps counted by scrub and verified by R.N. 9:36:13 Physician arrived 9:36:14 --------ALL STOP TIME OUT------ 9:36:14 Final Timeout: patient, procedure, and site verified with staff and physician. All members of the team are in agreement. 9:36:16 Right Radial & Right Groin site verified by team. 9:36:20 Physical assessment completed. ASA score P 2 - A patient with mild systemic disease as per Rey Nicole MD. 9:36:23 Sedation plan: IV Moderate Sedation Versed, Fentanyl 9:36:29 Use device set Radial Dx 9:36:30 Acist Syringe opened to sterile field. 9:36:30 Medline Cath Pack opened to sterile field. 9:36:31 Bag Decanter opened to sterile field. 9:36:31 Terumo 6Fr Slender Glidesheath opened to sterile field. 9:36:31 St Cheko 260cm J .035 wire opened to sterile field. 9:36:32 Acist Hand Control opened to sterile field. 9:36:32 Acist Manifold opened to sterile field. 9:36:33 Tegaderm 4 x 4 opened to sterile field. 9:36:34 MBrace Wrist Support opened to sterile field. 9:37:42 Versed 1 mg I.V. was administered by Siva Mae RN; for sedation; 9:37:55 Procedure started. 9:38:00 Local anesthetic to right radial artery with Lidocaine 2% by Rey Nicole MD.INITIAL ACCESS ONLY 9:38:07 A 6 Fr Short sheath was inserted into the Right Radial artery 9:38:53 Fentanyl 50 mcg I.V. was administered by Siva Mae RN; for sedation; 9:39:30 Lab Result : BUN 20 mg/dl 9:39:30 Lab Result : Hemoglobin 15 g/dl 9:39:30 Lab Result : Creatinine 0.8 mg/dl 9:40:20 Radial Cocktail (Verapomil 2mg/Nitro 400mcg/Heparin 1500units) 1 syringe added to field was administered by Rey Nicole MD; used for procedure; 9:40:24 A Diagnostic Terumo 5Fr [place] 110cm catheter was advanced over the wire and used for Multi-vessel Angiography. 9:40:32 Versed 1 mg I.V. was administered by Siva Mae RN; for sedation; 9:40:42 Fentanyl 50 mcg I.V. was administered by Siva Mae RN; for sedation; 9:41:23 LV hemodynamics recorded. 9:41:24 LV gram done using MAIER 9:41:26 Injector settings: Ml/sec: 5, Volume: 15, 9:41:34 EF : 60 % 9:41:49 LCA angiography performed. 9:41:52 Injector settings: Ml/sec: 3, Volume: 6, 9:42:42 Versed 1 mg I.V. was administered by Siva Mae RN; for sedation; 9:42:50 Fentanyl 50 mcg I.V. was administered by Siva Mae RN; for sedation; 9:43:40 RCA angiography performed. 9:43:43 Injector settings: Ml/sec: 3, Volume: 6, 9:44:14 Catheter removed. 9:44:24 Cordis 6FR XBLAD 3.5 guide catheter opened to sterile field. 9:44:32 Proceeding to intervention. 9:45:33 [place] Eagleye IVUS Catheter opened to sterile field. 9:45:34 Merit BasixCompak Inflation Kit opened to sterile field. 9:45:45 6 Fr xblad 3.5 guide catheter was inserted over the wire 9:46:19 [place] Sci PT Graphix J 182cm 0.014 guide wire opened to sterile field. 9:46:55 pt graphix wire advanced. 9:47:01 IVUS catheter advanced over wire. 9:47:05 IVUS pass to LAD lesion performed. 9:47:14 IVUS catheter removed over wire. 9:47:15 Heparin Bolus 4000 units I.V. was administered by Siva Mae RN; for anticoagulation; verified with 9:50:07 Inflation Number: 1 A Lavelle RX 4.0 x 15 stent was prepped and advanced across the Prox LAD. The stent was deployed at 21 CHINO for 0:10 (min:sec). 9:50:18 Inflation number: 2 The stent balloon was then re-inflated across the Prox LAD to 15 CHINO for 0:10 (min:sec). 9:51:15 Stent catheter was removed intact over wire. 9:52:03 Terumo TR Band Standard opened to sterile field. 9:57:00 Wire removed. 9:57:01 Guide catheter removed. 9:57:26 Sheath removed intact; hemostasis achieved with Mechanical Compression to the Right Radial artery. 9:57:29 Procedure ended.(Physican Out) 9:57:42 Fluoroscopy time 07.00 minutes. 9:57:51 Fluoroscopy dose: 1385 mGy 9:57:51 Flurop Dose total: 1385 9:58:05 Contrast amount:Isovue 300 150ml. 9:58:06 Sharps counted by scrub and verified by R.N. 9:58:09 TR band inflated with 10cc of air. 9:58:11 Insertion/operative site no bleeding no hematoma. 9:58:17 Post right radial artery:stable 9:58:18 Post Procedure Pulses reassessed and unchanged 9:58:21 Post procedure rhythm: unchanged. 9:58:24 Estimated blood loss: 5 ml 9:58:25 Post procedure instruction explained to patient.Patient verbalizes understanding. 9:58:25 Patient needs reinforcement of post procedure teaching. 9:58:36 Procedure type changed to Cath procedure, Diagnostic procedure, LHC, LHC w/Coronaries, Miscellaneous Procedures, Moderate Sedation up to 30 minutes 9:58:38 Procedure and supply charges have been captured, reviewed, submitted and are correct. 9:58:42 Procedure Complication : No complications 9:58:44 Vital chart was stopped 9:58:44 See physician's report for complete and final results. 9:58:48 Report given to Pre/Post Procedure Room. 9:58:51 Patient transfered to Pre/Post Procedure Room with Stretcher. 9:58:54 Procedure ended. 9:58:54 Full Disclosure recording stopped 9:59:01 ACC-PCI Only Patient was given prescriptions, or instructed by Rey Nicole MD to start/continue the following medications upon discharge: Plavix 9:59:03 End room use (Document Last) Intervention Summary Intervention Notes Time ActionType Lesion and Equipment Action# Pressure Duration Attributes Used 9:50:07 Place stent Prox LAD [place] RX 1 21 00:10 4.0 x 15 stent 9:50:18 Reinflate Prox LAD [place] RX 2 15 00:10 stent 4.0 x 15 balloon stent Device Usage Item Name Manufacture Quantity Catalog Number Hospital Part Current Mini mal Lot# / Charge Number Stock Stock Serial# Code Acist Acist 1 66215 389130 311200 356328 20 Syringe Medical Systems Inc Medline Cardinal 1 [id number] 280410 24894 015160 5 Cath Pack Health Bag Microtek 1 2002S 735667 46862 538719 5 Knock Knock Medical Inc. Terumo 6Fr Terumo 1 [id number] 245139 796560 063832 [address] St Cheko 1 113015 495077 533143 175330 30 260cm J .035 wire Acist Hand Acist 1 28905 132193 280605 035879 5 [employer] Medical Systems Inc Acist Acist 1 60879 288139 119072 320515 5 omelett.es Medical Systems Inc Tegaderm 4 3M 1 1626W 946635 565438 038269 5 x 4 MBrace Advanced 1 140-0250-00 497532 87759 340801 5 Wrist Vascular Support Dynamics Diagnostic Terumo 1 03-8529 076136 077740 659032 5 Terumo 5Fr [place] 110cm catheter Cordis 6FR Cardinal 1 [id number] 235396 757446 256929 10 XBLAD 3.5 Health guide catheter [place] 1 11359V 877948 491216 404445 8 [place] Eagleye IVUS Catheter Merit Merit 1 DP4657 301427 701713 712672 15 Squidbid Medical Inflation Kit [place] Sci [place] 1 [id number] 284363 095002 195250 5 PT Graphix Scientific J 182cm 0.014 guide wire [place] RX 4.0 Medtronic 1 [id number] 58851 0641587 939442 5 [id number] x 15 stent Terumo TR Terumo 1 [id number] 157455 309175 235992 40 Band Standard Signature Audit [place] Stage Time Signature Unsigned Intra-Procedure 02/13/2017 Lawanda Kiran 10:03:12 AM RT(R) Signatures Monitor : Lawanda Kiran RT Signature : Date : Time : [address] [place] [address]
[~2017-02-13 07:27] MED LIST changes: +PLAVIX75 MG PO
[2017-02-13 07:48] VITALS: BP 136/80; BMI 30.3
[2017-02-13 07:57] LABS: BASOPHILS 0.3 % (0-2); EOSINOPHILS 2.6 % (0-7); HEMATOCRIT 44.3 % (42.0-54.0); IMMATURE GRANULOCYTES 0.3 % (0-5); LYMPHOCYTES 19.3 % (15-50); MCH 31.1 pg (26.0-34.0); MCHC 33.9 g/dL (31.0-37.0); MCV 91.9 fL (80.0-100.0); MONOCYTES 8.5 % (2-11); PLATELET COUNT 292 10x3/uL (130-400); RBC 4.82 10x6/uL (4.20-6.10); RDW 12.9 % (11.5-14.5); WBC 6.5 10x3/uL (4.8-10.8)
[2017-02-13 08:03] LABS: CALC OSMOLALITY 284 mosm/kg (275-300); CALCIUM 8.7 mg/dL (8.5-10.1); CARBON DIOXIDE 24.1 mmol/L (21.0-32.0); CHLORIDE - SERUM 105 mmol/L (98-107); CREATININE - SERUM 0.8 mg/dL (0.6-1.3); GLUCOSE 111 mg/dL (74-106); POTASSIUM - SERUM 3.9 mmol/L (3.5-5.1); SODIUM 141 mmol/L (136-145); UREA NITROGEN 20 mg/dL (7-18); eGFR NON AFRICAN AMERICAN > 90 mL/min (90-120)
--- NOTE | 2017-02-13 10:15 | NUR ---
1015 RECIEVED TO ROOM VIA STRETCHER FROM MAGNETIC LOCATER WITH TR BAND TO R/WRIST CDI NO BLEEDING NO HEMATOMA NOTED. REPORTS OF ONE STENT TO THE LAD. VSS WITH CHEST PAIN RATED AT 6 ON SCALE. PATIENT STATED CHEST PAIN BEFORE PROCEDURE AT 0. DR DC NOTIFIED WITH ORDERS RECIEVED FOR PAIN MED
--- NOTE | 2017-02-13 10:32 | NUR ---
VSS WITH TR BAND TO R/WRIST INTACT. PATIENT DENIED NEED FOR PAIN MEDICATION STATING IT HAS GOTTEN BETTER JUST WAIT AND I WILL ASK YOU FOR IT IF I NEED IT
--- NOTE | 2017-02-13 11:03 | NUR ---
RESTING QUIETLY WITH NO DISTRESS NOTED. VSS TR BAND TO R/WRIST CDI NO BLEEDING NO HEMATOMA NOTED. AT SIDE
--- NOTE | 2017-02-13 11:34 | NUR ---
TR BAND REMAINS CDI WITH NO BLEEDING.PATIENT DENIED CHEST PAIN AT THIS TIME VSS
--- NOTE | 2017-02-13 11:48 | NUR ---
PATIENT SLEEPING QUIELTY WITH NO DISTRESS AT BEDSIDE VSS
--- NOTE | 2017-02-13 12:12 | NUR ---
DR DC AT BEDSIDE TALKING TO PATIENT AND . TR BAND REMAINS IN PLACE WITH VSS
--- NOTE | 2017-02-13 12:51 | NUR ---
CONTINUES TO SLEEP WITH NO DISTRESS NOTED
--- NOTE | 2017-02-13 13:20 | NUR ---
4 CC AIR REMOVED FROM TR BAND WITH NO BLEEDING NO HEMATOMA NOTED.
--- NOTE | 2017-02-13 13:21 | NUR ---
PRESSURE ON FEMSTOP RELEASED 30 NO BLEEDING NOTED NO HEMATOMA NOTED
--- NOTE | 2017-02-13 13:54 | NUR ---
4 CC AIR REMOVED FROM TR BAND WITH NO BLEEDING NOTED. PIV REMOVED WITH DRESSING APPLIED. CHEST PAIN IS DENIED WITH VSS. PATIENT UP TO GET DRESSED FOR DISCHARGE HOME NO DISTRESS NOTED
--- NOTE | 2017-02-13 14:13 | NUR ---
VERBAL AND WRITTEN DISCHARGE GONE OVER WITH PATIENT AND BOTH VERBALIZED UNDERSTANDING. TR BAND REMOVED WITH DRESSING APPLIED NO BLEEDING NO HEMATOMA NOTED PATIENT LEFT VIA WC TO [facility]ARK[facility] FOR TRANSPORT HOME
--- NOTE | 2017-02-20 14:14 | OP ---
PATIENT NAME: TEVIN FERNANDES MEDICAL RECORD: [id number] :56 LOCATION:D.CAT ADMISSION DATE: SURGEON: EDUARDO DC MD DATE OF OPERATION: 02/13/2017 PROCEDURES: 1. PTCA stent LAD. 2. Intravascular ultrasound. 3. Left heart catheterization. 4. Selective coronary angiography. 5. Left ventriculogram. INDICATION: Angina and coronary artery disease. PROCEDURE IN DETAIL: After informed consent was obtained and after detailed explanation of risks, benefits as well as alternative therapies, the patient elected to proceed with angiogram and angioplasty. The right radial area was prepped and draped in normal sterile fashion. Right radial artery was cannulated via modified Seldinger technique with placement of 6-Citizen Of [place] sheath. All catheters exchanged through this sheath. FINDINGS: Left ventriculogram performed in the standard 30-degree MAIER view reveals good cardiac wall motion throughout all segments. Overall ejection fraction estimated at 60%. SELECTIVE CORONARY ANGIOGRAPHY: 1. Left main is with no significant angiographic disease. 2. Left anterior descending has previously placed stent. There is 81% in-stent restenosis confirmed by intravascular ultrasound. 3. Left circumflex shows moderate irregularities, but no flow-limiting stenosis. 4. Right coronary has moderate irregularities, but no flow-limiting stenosis. PTCA STENT OF THE LAD: The stent used was a 4.0 x 18 mm [place]. Result was 0% residual stenosis. OVERALL IMPRESSION: Successful percutaneous transluminal coronary angioplasty stent of the left anterior descending going from 81% initial stenosis confirmed by intravascular ultrasound to 0% residual stenosis. TRANSINT:[id number] Voice Confirmation ID: [id number] DOCUMENT ID: [id number] EDUARDO DC MD at 1414 CC: [id number] DICTATION DATE: 02/13/17 1004 VARNISH COOKER: 02/13/17 1030 DEP CLI 02/13/17 [place] [address]
== END | disposition home or self-care (01) ==
LOC: D.CATH 07:27
PROVIDERS: Internal Medicine Interventional Cardiology
DX: I25.119 Atherosclerotic heart disease of native coronary artery with unspecified angina pectoris (principal); Z01.812 Encounter for preprocedural laboratory examination

== ENCOUNTER 2017-07-27 08:33 | Observation (INO) | payer MEDICAID ==
[~2017-07-27] VITALS: Ht 175.3 cm; Wt 97.7 kg
--- NOTE | ~2017-07-27 | EC ---
PATIENT:TEVIN FERNANDES DATE OF SERVICE: 07/27/17 SEX: M MEDICAL RECORD: [id number] DATE OF : 56 LOCATION:D. D.211 AGE OF PATIENT: 57 ADMISSION DATE: 07/27/17 REFERRING PHYSICIAN: INTERPRETING PHYSICIAN: DHEERAJ MACKAY MD ECHOCARDIOGRAM REPORT ECHO CHARGES 4 ECHO COMPLETE Date: 07/27 CLINICAL DIAGNOSIS: CP ECHOCARDIOGRAPHIC MEASUREMENTS (adult normal given) AC root (d.<3.7cm) 2.9 cm LV Septum d (<1.2 cm> 1.5 cm Valve Excursion 2.1 cm LV Septum (systole) 2.3 cm Left Atria (s.<4.0cm> 3.4 cm LVPW d(<1.2cm) 1.4 cm RV (d.<2.3cm) 2.4 cm LVPW (sytole) 2.2 cm LV diastole(<5.6CM) 5.7 cm MV E-F(>70mm/sec) cm LV systole 3.3 cm LVOT Diameter 2.0 cm MV exc.(>10mm) cm Est.ejection fraction (50-75%) % DOPPLER: LVIT cm/sec A 67.0 cm/sec E 58.0 cm/sec LA cm/sec RVSP 32.0 mmHg LVOT 93.0 cm/sec AOP1/2T m/s Asc. Ao 161 cm/sec RVOT 71.0 cm/sec RA cm/sec PA 86.0 cm/sec AV Gradient Peak 10.4 mmHg AV Mean 5.0 mmHg AV Area 2.1 cm MV Gradient Peak 3.5 mmHg MV Mean 1.3 mmHg MV Area cm COMMENTS: Forest Patrolman: Denisse PATTONOE Robot Programmer: 4 Dr. Mackay TAPE# PACS Pericardial Effusion N DATE OF SERVICE: PROCEDURE: Transthoracic echocardiogram. FINDINGS: 1. Left ventricle normal size, normal shape, normal function. Inflow characteristics consistent with diastolic dysfunction. Ejection fraction is 60%. 2. The left atrium is normal size, normal function. 3. The aortic valve is normal. ECHOCARDIOGRAM REPORT [id number] TEVIN FERNANDES Marii Rodriguez 4. The mitral valve has mild mitral regurgitation. 5. Tricuspid valve has mild tricuspid regurgitation. 6. Right ventricle is normal size, normal function. 7. Right atrium is normal size, normal function. 8. The pulmonic valve has trace pulmonic insufficiency. 9. The pericardium is normal. CONCLUSION: The patient has evidence of mild hypertensive heart disease, otherwise normal echocardiogram. TRANSINT:[id number] Voice Confirmation ID: [id number] DOCUMENT ID: [id number] DHEERAJ MACKAY MD at 0741 CC: [id number] DICTATION DATE: 07/28/17 0754 CONSTITUTIONAL LAW PROFESSOR: 07/28/17 1157 DIS IN 07/28/17 [facility] [address] [place] [address]
--- NOTE | ~2017-07-27 | HEMODYNAMI ---
PATIENT:TEVIN FERNANDES MEDICAL RECORD: [id number] : 56 [id number] ADMISSION DATE: 07/27/17 Generatedon:07/28/201710:33 Patient name: TEVIN FERNANDES Patient #: [id number] SSN: DO B: 1960 Date of study: 07/28/2017 Page: Of Hemodynamic Procedure Report Patient Data Patient Demographics Procedure consent was obtained First Name: TEVIN Gender: Male Last Name: DENA : 1960 [facility] Initial: Marii Rodriguez Age: 57 year(s) Patient #: [id number] Race: Unknown Additional ID: [id number] Contact details Address: [address] [place] [address] State: [place] City: [place] Zip code: [address] Past Medical History Allergies: No known allergies Admission Admission Data Admission Date: 07/27/2017 Admission Time: 10:33 Admit Source: Other Room #: D.2119 Lab Results Lab Result Date: 07/28/2017 Lab Result Time: 8:56 Biochemistry Name Units Result Min Max BUN mg/dl 11 --(-*--)-- 7 18 Creatinine mg/dl 0.9 --(-*--)-- 0.6 1.3 CBC Name Units Result Min Max Hematocrit % 44.4 --(*---)-- 42 54 Hemoglobin g/dl 15.3 --(-*--)-- 13.5 17.5 Procedure Procedure Types Cath Procedure Diagnostic Procedure LHC C w/Coronaries Procedure Description Procedure Date Procedure Date: 07/28/2017 Procedure Start Time: 10:15 Procedure End Time: 10:33 Procedure Staff Name Function Vijay Heredia MD Performing Physician Archie Cortez RT Monitor Ishmael Brunner RN Nurse Lucy Amin RT Scrub Procedure Data Cath Procedure Fluoroscopy Diagnostic fluoroscopy Total fluoroscopy Time: 3.8 time: 3.8 min min Diagnostic fluoroscopy Total fluoroscopy dose: 569 dose: 569 mGy mGy Contrast Material Contrast Material Type Amount (ml) Isovue 300 45 Entry Location Entry Primary Successful Side Size Upsize Upsize Entry Closure Goldberg ccessful Closure Location (Fr) 1 (Fr) 2 (Fr) Remarks Device Remarks Radial Right 6 Fr Mechanical artery Short Compression Estimated blood loss: 5 ml Diagnostic catheters Device Type Used For End Catheter Placement DIAGNOSTIC Piter 110cm Procedure 5Fr catheter ([id number]) Procedure Complications No complications Procedure Medications Medication Administration Route Dosage 0.9% NaCl I.V. 100 ml/hr Oxygen etCO2 Nasal cannula 2 l/min Heparin Flush Bag added to field 2 bags (1000units/500ml NS) Lidocaine 2% added to field 20 Radial Cocktail added to field 1 syringe (Verapomil 2mg/Nitro 400mcg/Heparin 1500units) Versed I.V. 2 mg Fentanyl I.V. 50 mcg Radial Cocktail I.A. 1 syringe (Verapomil 2mg/Nitro 400mcg/Heparin 1500units) Hemodynamics Rest HGB: 15.3 (g/dl) Heart Rate: 64 (bpm) Pressure Samples Time Site Value (mmHg) Purpose Heart Use Rate(bpm) 10:19 LV 128/16,10 EDP 113 Gradients Valve Time Site Site Mean SEP/DFP Peak To Heart Use 1 2 (mmHg) (sec/min) Peak Rate (mmHg) (bpm) Aortic 10:20 LV AO 83 Snapshots Pre Cath Intra NCS Post Cath Vital Signs Time Heart Resp SPO2 etCO2 NIBP Rhythm Pain Sedation Rate (ipm) (%) (mmHg) (mmHg) Status Level (bpm) 10:10:14 63 14 99 0 112/71(85) NSR 0 (11) 10(A) , No pain 10:15:01 65 14 97 36 118/68(98) NSR 0 (11) 10(A) , No pain 10:19:52 74 15 96 20.3 113/55(69) NSR 0 (11) 10(A) , No pain 10:24:41 67 14 93 35.3 110/59(78) NSR 0 (11) 10(A) , No pain 10:29:30 66 11 98 34.5 108/56(85) NSR 0 (11) 10(A) , No pain Medications Time Medication Route Dose Verified Delivered Reason Notes Effectiveness by by 10:07:10 0.9% NaCl I.V. 100 Ishmael Ishmael Per ml/hr Kannan Brunner physician RN RN 10:07:23 Oxygen etCO2 2 l/min Ishmael Ishmael Per Nasal Kannan Brunner physician cannula RN RN 10:07:32 Heparin Flush added 2 bags Ishmael Ishmael used for Bag to Lorigan Lorigan procedure (1000units/500ml field RN RN NS) 10:07:45 Lidocaine 2% added 20ml Ishmael Ishmael for local to vial Lorigan Lorigan anesthetic field RN RN 10:07:59 Radial Cocktail added 1 Ishmael Ishmael used for (Verapomil to syringe Lorigan Gladysigan procedure 2mg/Nitro field RN RN 400mcg/Heparin 1500units) 10:14:52 Versed I.V. 2 mg Ishmael Ishmael for sedation Kannan Brunner RN RN 10:15:04 Fentanyl I.V. 50 mcg Ishmael Ishmael for sedation Kannan Brunner RN RN 10:18:19 Radial Cocktail I.A. 1 Ishmael Vijay for (Verapomil syringe Kannan Heredia MD vasodilation 2mg/Nitro RN 400mcg/Heparin 1500units) Procedure Log Time Note 9:39:43 Informed consent obtained and on chart 9:39:48 Admit Source: Other 9:40:23 Diagnostic Cath status Elective 9:40:24 Ishmael Brunner RN sent for patient. Start room use. 9:40:25 Time tracking: Regular hours (M-F 7:00 - 5:00) 9:40:29 Plan of Care:Hemodynamics will remain stable., Cardiac rhythm will remain stable., Comfort level will be maintained., Respiratory function will remain adequate., Patient/ family verbilizes understanding of procedure., Procedure tolerated without complication., Recovers from procedure without complications.. 9:41:38 H&P Date Dictated: 07/27/2017 Within 30 days and on chart.. 9:54:04 Patient received from Med II to CCL 1 Alert and oriented. Tansferred to table in Supine position. 9:54:05 Warm blankets applied, and mary alice hugger turned on for patient comfort. 9:54:06 Correct patient and procedure confirmed by team. 9:54:07 ECG and BP/O2 sat monitors applied to patient. 10:07:10 0.9% NaCl 100 ml/hr I.V. was administered by Ishmael Brunner RN; Per physician; 10:07:23 Oxygen 2 l/min etCO2 Nasal cannula was administered by Ishmael Brunner RN; Per physician; 10:07:32 Heparin Flush Bag (1000units/500ml NS) 2 bags added to field was administered by Ishmael Brunner RN; used for procedure; 10:07:45 Lidocaine 2% 20ml vial added to field was administered by Ishmael Brunner RN; for local anesthetic; 10:07:59 Radial Cocktail (Verapomil 2mg/Nitro 400mcg/Heparin 1500units) 1 syringe added to field was administered by Ishmael Brunner RN; used for procedure; 10:08:04 Vital chart was started 10:10:07 Baseline sample Acquired. 10:10:11 Rhythm: sinus rhythm 10:10:15 Full Disclosure recording started 10:10:35 Pre-procedure instructions explained to patient. 10:10:36 Pre-op teaching completed and patient verbalized understanding. 10:11:29 Family in patients room. 10:11:30 Patient NPO since Midnight. 10:11:37 Patient allergic to No known allergies 10:11:39 Is the patient allergic to Iodine/contrast media? No. 10:11:40 Is patient on blood thinner?Yes 10:11:44 ACC The patient was administered the following blood thiners within the last 24 hours: ACCPlavix 10:11:46 Patient diabetic? No. 10:11:49 Previous problem with sedation/anesthesia? No ? 10:11:50 Snore? Yes 10:11:52 Sleep apnea? No 10:11:53 Deviated septum? No 10:11:54 Opens mouth fully? Yes 10:11:54 Sticks out tongue? Yes 10:11:56 Airway obstruction? No ? 10:11:58 Dentures? No ? 10:12:02 Modified Andrew's test Ulnar < 7 seconds 10:12:06 Patient pain scale 0/10 ?. 10:12:40 IV patent on arrival in right hand with 0.9% NaCl at [facility]. 10:13:29 Lab Result : BUN 11 mg/dl 10:13:29 Lab Result : Hemoglobin 15.3 g/dl 10:13:29 Lab Result : Creatinine 0.9 mg/dl 10::29 Lab Result : Hematocrit 44.4 % 10:13:31 Lab results completed and on chart. 10:13:33 Right Radial & Right Groin area was prepped with chlora-prep and draped in sterile fashion 10:13:34 Alarms reviewed by R. N. 10:13:35 Sharps counted by scrub and verified by R.N. 10:13:37 Physician arrived 10:13:38 --------ALL STOP TIME OUT------ 10:13:38 Final Timeout: patient, procedure, and site verified with staff and physician. All members of the team are in agreement. 10:13:39 Right Radial & Right Groin site verified by team. 10:13:42 Physical assessment completed. ASA score P 2 - A patient with mild systemic disease as per Vijay Heredia MD. 10:13:45 Sedation plan: IV Moderate Sedation Medication:Versed, Fentanyl 10:13:47 Use device set Radial Dx or PCI 10:13:48 ACIST Syringe (20699) opened to sterile field. 10:13:49 Medline Cath Pack ([id number]) opened to sterile field. 10:13:49 Bag Decanter (2002S) opened to sterile field. 10:13:50 ACIST Hand Control (26156) opened to sterile field. 10:13:50 ACIST Manifold (82387) opened to sterile field. 10:13:51 Tegaderm 4 x 4 (1626W) opened to sterile field. 10:13:51 MBrace Wrist Support ([id number]) opened to sterile field. 10:13:53 DIAGNOSTIC WIRE .035 260cm J wire (179924) opened to sterile field. 10:13:54 SHEATH 6Fr Prelude Radial ([id number]) opened to sterile field. 10:14:52 Versed 2 mg I.V. was administered by Ishmael Brunner RN; for sedation; 10:15:04 Fentanyl 50 mcg I.V. was administered by Ishmael Brunner RN; for sedation; 10:15:05 Procedure started. 10:15:09 Local anesthetic to right radial artery with Lidocaine 2% by Vijay Heredia MD.INITIAL ACCESS ONLY 10:16:18 A 6 Fr Short sheath was inserted into the Right Radial artery 10:16:20 Zero performed for pressure channel P1 10:16:30 A DIAGNOSTIC Piter 110cm 5Fr catheter ([id number]) was advanced over the wire and used for Procedure. 10:18:19 Radial Cocktail (Verapomil 2mg/Nitro 400mcg/Heparin 1500units) 1 syringe I.A. was administered by Vijay Heredia MD; for vasodilation; 10:19:35 LV hemodynamics recorded. 10:19:38 Injector settings: Ml/sec: 12., Volume: 8, 10:19:57 LV gram done using MAIER 10:20:01 EF : 60 % 10:20:41 LCA angiography performed. 10:27:06 Catheter removed. 10:28:25 TR BAND Standard ([id number]) opened to sterile field. 10:28:34 Sheath removed intact; hemostasis achieved with Mechanical Compression to the Right Radial artery. 10:28:35 Procedure ended.(Physican Out) 10:28:40 Fluoroscopy time 03.80 minutes. 10:28:44 Fluoroscopy dose: 569 mGy 10:28:44 Flurop Dose total: 569 10:29:30 Contrast amount:Isovue 300 45ml. 10:29:33 Sharps counted by scrub and verified by R.N. 10:31:05 TR band inflated with 10cc of air. 10:31:07 Insertion/operative site no bleeding no hematoma. 10:31:15 Post right radial artery:stable, soft, clean and dry 10:31:17 Post Procedure Pulses reassessed and unchanged 10:31:21 Post-procedure physical assessment completed. ASA score P 2 - A patient with mild systemic disease as per Vijay Heredia MD. 10:31:22 Post procedure rhythm: unchanged. 10:31:26 Estimated blood loss: 5 ml 10:31:27 Post procedure instruction explained to patient.Patient verbalizes understanding. 10:31:28 Patient needs reinforcement of post procedure teaching. 10:32:47 Procedure and supply charges have been captured, reviewed, submitted and are correct. 10:32:49 Procedure Complication : No complications 10:32:51 Vital chart was stopped 10:32:52 See physician's report for complete and final results. 10:32:58 Report given to PCU. 10:33:00 Patient transfered to PCU with Stretcher. 10:33:06 Procedure ended. 10:33:06 Full Disclosure recording stopped 10:33:09 End room use (Document Last) Device Usage Item Name Manufacture Quantity Catalog Number Hospital Part Current M inimal Lot# / Charge Number Stock Stock Serial# Code ACIST Syringe Acist 1 50657 [id number] 986100 972152 2 0 (58154) Medical [employer] Inc Medline Cath Cardinal 1 [id number] 482509 77669 098462 5 Pack Health ([id number]) Bag Decanter Microtek 1 2002S 917944 87309 675115 5 (2001S) Medical Inc. ACIST Hand Acist 1 02738 721053 083031 373930 5 Control (80167) Medical Systems Inc ACIST Manifold Acist 1 09765 754333 667605 486227 5 (45856) [employer] Systems Inc Tegaderm 4 x 4 3M 1 1626W 763405 114559 295097 5 (1626W) MBrace Wrist Advanced 1 140-0250-00 139355 04173 214382 5 Support Vascular ([id number]) Dynamics DIAGNOSTIC WIRE St Cheko 1 330063 876805 480402 057634 3 0 .035 260cm J wire (587465) SHEATH 6Fr Merit 1 [id number] 096216 495355 859936 5 Prelude Radial Medical ([id number]) DIAGNOSTIC Terumo 1 40-1694 630634 086926 972662 5 Piter 110cm 5Fr catheter (246356) TR BAND Terumo 1 [id number] 568469 957736 015287 4 0 Standard ([id number]) Signature Audit [place] Stage Time Signature Unsigned Intra-Procedure 07/28/2017 Archie Cortez 10:33:48 AM RT(R) Signatures Monitor : Archie Cortez RT Signature : Date : Time : [facility] [address] [place] [address]
[2017-07-27 09:14] LABS: BASOPHILS 0.2 % (0-2); EOSINOPHILS 0.7 % (0-7); HEMATOCRIT 44.4 % (42.0-54.0); HEMOGLOBIN 15.3 g/dL (13.5-17.5); IMMATURE GRANULOCYTES 0.1 % (0-5); LYMPHOCYTES 18.1 % (15-50); MCH 31.4 pg (26.0-34.0); MCHC 34.5 g/dL (31.0-37.0); MONOCYTES 5.2 % (2-11); NEUTROPHILS 75.7 % (40-80); PLATELET COUNT 322 10x3/uL (130-400); RBC 4.88 10x6/uL (4.20-6.10); RDW 12.8 % (11.5-14.5); WBC 9.2 10x3/uL (4.8-10.8)
[2017-07-27 09:19] LABS: ALBUMIN 3.6 g/dL (3.4-5.0); ALKALINE PHOSPHATASE 89 U/L (46-116); ALT (SGPT) 20 U/L (10-68); CALC OSMOLALITY 277 mosm/kg (275-300); CALCIUM 8.6 mg/dL (8.5-10.1); CARBON DIOXIDE 24.4 mmol/L (21.0-32.0); CHLORIDE - SERUM 104 mmol/L (98-107); CREATININE - SERUM 0.9 mg/dL (0.6-1.3); GLUCOSE 106 mg/dL (74-106); POTASSIUM - SERUM 3.5 mmol/L (3.5-5.1); PROTEIN - SERUM 7.3 g/dL (6.4-8.2); SODIUM 140 mmol/L (136-145); UREA NITROGEN 11 mg/dL (7-18); eGFR NON AFRICAN AMERICAN > 90 mL/min (90-120)
[2017-07-27 09:22] LABS: CREATINE KINASE 111 UL (21-232); TROPONIN-I < 0.017 ng/mL (0.000-0.060)
[2017-07-27 18:16] VITALS: BP 118/64; Ht 175.3 cm; Wt 97.7 kg
[2017-07-27 19:00] VITALS: BP 152/79
[2017-07-28 04:00] VITALS: BP 103/63
[2017-07-28 09:13] VITALS: BP 110/75
[2017-07-28 09:57] LABS: BASOPHILS 0.2 % (0-2); HEMATOCRIT 44.7 % (42.0-54.0); HEMOGLOBIN 15.1 g/dL (13.5-17.5); IMMATURE GRANULOCYTES 0.2 % (0-5); LYMPHOCYTES 21.9 % (15-50); MCH 31.1 pg (26.0-34.0); MCHC 33.8 g/dL (31.0-37.0); MEAN PLATELET VOLUME 10.2 fL (7.4-10.4); MONOCYTES 6.5 % (2-11); NEUTROPHILS 70.2 % (40-80); PLATELET COUNT 314 10x3/uL (130-400); RBC 4.86 10x6/uL (4.20-6.10); RDW 12.8 % (11.5-14.5); WBC 8.4 10x3/uL (4.8-10.8)
[2017-07-28 10:15] LABS: CALC OSMOLALITY 283 mosm/kg (275-300); CALCIUM 8.5 mg/dL (8.5-10.1); CHLORIDE - SERUM 105 mmol/L (98-107); CREATININE - SERUM 0.9 mg/dL (0.6-1.3); GLUCOSE 100 mg/dL (74-106); POTASSIUM - SERUM 3.8 mmol/L (3.5-5.1); SODIUM 142 mmol/L (136-145); eGFR NON AFRICAN AMERICAN > 90 mL/min (90-120)
[2017-07-28 10:16] LABS: UREA NITROGEN 15 mg/dL (7-18)
[2017-07-28] MEDS ORDERED: MICARDIS80 MG PO (10:38)
[2017-07-28] MEDS ORDERED: ISOSORBIDE MONO30 M1 PO (10:39)
[2017-07-28 11:58] VITALS: BP 108/64
== END 2017-07-28 14:58 | disposition home or self-care (01) ==
LOC: D.ER 08:33 → D.M2 10:33 → D.EDHOLD 10:33 → OBSVTIME 10:34 → D.M2 16:55
PROVIDERS: Emergency Medicine; Internal Medicine Cardiovascular Disease
DX: R07.89 Other chest pain (principal); I25.10 Atherosclerotic heart disease of native coronary artery without angina pectoris; I10 Essential (primary) hypertension; E78.5 Hyperlipidemia, unspecified; T82.855A Stenosis of coronary artery stent, initial encounter; Y83.8 Other surgical procedures as the cause of abnormal reaction of the patient, or of later complication, without mention of misadventure at the time of the procedure; Z72.0 Tobacco use

== ENCOUNTER → 2017-12-01 12:51 | Outpatient (CLI) | payer MEDICAID ==
[2017-07-27 18:16] VITALS: BMI 32.5
[~2017-12-01 12:51] MED LIST changes: +ISOSORBIDE MONO30 M1 PO; +KEFLEX500 MG PO; +MICARDIS80 MG PO; +PERCOCET 7.5/321 TAB PO; +VISTARIL50 MG PO
== END | disposition home or self-care (01) ==
LOC: D.MRI 12:51
DX: M25.511 Pain in right shoulder (principal)

== ENCOUNTER 2017-12-25 11:31 | Day surgery (SDC) | payer MEDICAID ==
[2017-12-24 15:24] LABS: HEMATOCRIT 43.1 % (42.0-54.0); HEMOGLOBIN 14.8 g/dL (13.5-17.5); MCH 31.4 pg (26.0-34.0); MCHC 34.3 g/dL (31.0-37.0); MCV 91.5 fL (80.0-100.0); MEAN PLATELET VOLUME 10.3 fL (7.4-10.4); RBC 4.71 10x6/uL (4.20-6.10); RDW 13.2 % (11.5-14.5); WBC 11.2 10x3/uL (4.8-10.8)
[~2017-12-25] VITALS: Ht 175.3 cm; Wt 95.3 kg
--- NOTE | ~2017-12-25 | OP ---
PATIENT NAME: TEVIN REY JR MEDICAL RECORD: [id number] :56 [facility] ADMISSION DATE: SURGEON: WILLIAM FERNANDO DO DATE OF OPERATION: 12/25/2017 PROCEDURE PERFORMED: Right shoulder arthroscopy with biceps tenodesis, mini open rotator cuff repair with Regeneten graft, subacromial decompression, distal clavicle excision. PREOPERATIVE DIAGNOSES: Right shoulder superior labrum anterior and posterior tear, rotator cuff tear, subacromial impingement, AC joint arthritis. POSTOPERATIVE DIAGNOSES: Right shoulder superior labrum anterior and posterior tear, rotator cuff tear, subacromial impingement, AC joint arthritis. INDICATIONS: Mr. Rey is a 57-year-old man presented to my office with an MRI that demonstrated the said diagnosis. He said he wanted to get it fixed, started again with pain and said he was aware of the risks and benefits of the procedure after having a discussion with him, consented to the procedure; the risks including infection, bleeding, damage to nerve or vessels, and need for further surgery. He was also informed of the graft that it was made of bovine Achilles and he was aware of the risks with it as well. SURGEON: William Fernando DO DESCRIPTION OF PROCEDURE: The patient was given a block in the preoperative area by anesthesia, given 900 mg of clindamycin preoperatively, taken to the operative suite, laid in the left lateral decubitus position. Right shoulder and arm were prepped and draped in sterile fashion. A timeout was performed, everyone was in agreement with the correct side, site, patient and the procedure. The shoulder joint itself was insufflated with 60 mL of normal saline and then the posterior portal was established with an 11-blade scalpel. Once the portal was established, the trocar entered into the joint and the camera was put in. The anterior portal was then established with an 18-gauge spinal needle, after the 18-gauge spinal needle was put in, it was removed. An 11 blade scalpel was used to open up the anterior portal. The burner was then put into the joint. The SLAP tear was noted. A biceps tenotomy was performed at that point and the shoulder was inspected. There were no loose bodies in the inferior gutter and the large rotator cuff tear was noted. It was retracted to the humeral head as well. Subscapularis tendon was intact as it was viewed. The trocar was then removed. The camera and burner were then removed and the camera was inserted into the subacromial space. A lateral portal was established with an 18-gauge spinal needle and an 11 blade scalpel. A shaver was then brought in to do a debridement to remove some of the bursa and then the burner to clean the soft tissue off of the acromion and at the AC joint. Then, a bur was used to do the subacromial decompression of the distal and lateral acromion and removed the distal clavicle as well at the AC joint. A 7 mm space was obtained upon the distal clavicle excision and the spurs were removed from the acromion as well. We then opened the lateral portal larger with a 15 blade scalpel. Careful dissection was made down to the rotator cuff itself. Bursa was removed. Anchors were placed medially first and then the Scorpion was used to pass the sutures through the rotator cuff. This was tied down and then with the loosened sutures with a suture tape, the lateral row was then put in having a nice repair, had a good repair down. This was all done after the bed had been prepared on the greater trochanter with a bur to get bleeding cortex. After the OPERATIVE REPORT [id number] TEVIN REY JR repair was done and nicely put down, the Regeneten device was entered. First, a K-wire was put in about 6 mm from the footprint and then the Regeneten graft was deployed. It was unrolled and then stapled into place, medially first and then in the middle and along the edges, anterior and posterior and then on the humeral head itself, bone doug were put in to hold it in place. This was thoroughly irrigated at that time and then attention was drawn to the biceps tenodesis part and an incision was made on the anterior humerus. Careful dissection was made down to the biceps tendon itself, was pulled out through the wound, whipstitched and put onto a button that was placed unicortically into the humerus and tensioned down. This was tied and then a free needle was used to suture through the biceps tendon once more to get a good taut repair and tenodesis site. This was tied down. The excess tendon and suture were cut at that time. These wounds were all thoroughly irrigated and closed initially with 2-0 Vicryl on the larger incisions and then 4-0 Monocryl was run on the skin on the larger incisions. The deltoid fascia was closed with 2-0 Vicryl as well in a [id number] pattern and then 4-0 Monocryl was used at the anterior and posterior portal sites in an inverted interrupted fashion. Dermabond was placed over each of the sites and Telfa and Tegaderm were placed over each of the sites. The patient was put in a sling, awakened and taken to recovery in stable condition. Blood loss was minimal. Complications were none. TRANSINT:[id number] Voice Confirmation ID: [id number] DOCUMENT ID: [id number] WILLIAM FERNANDO DO at 0724 CC: [id number] DICTATION DATE: 12/25/17 1744 SOFTWARE TEST DEVELOPER: 12/25/17 1844 [facility] 12/25/17 [address] [place] [address]
[2017-12-25 11:16] VITALS: BP 136/77; Ht 175.3 cm; Wt 95.3 kg
[~2017-12-25 11:31] MED LIST changes: -KEFLEX500 MG PO; -PERCOCET 7.5/321 TAB PO; -VISTARIL50 MG PO
[2017-12-25] MEDS ORDERED: VISTARIL50 MG PO (17:36)
[2017-12-25] MEDS ORDERED: KEFLEX500 MG PO (17:36)
[2017-12-25] MEDS ORDERED: PERCOCET 7.5/321 TAB PO (17:36)
== END 2017-12-25 19:35 | disposition home or self-care (01) ==
LOC: D.OPS 11:31 → D.PAN 11:45 → D.OPS 11:45
PROVIDERS: Anesthesiology
DX: S43.431A Superior glenoid labrum lesion of right shoulder, initial encounter (principal); M75.101 Unspecified rotator cuff tear or rupture of right shoulder, not specified as traumatic; M75.41 Impingement syndrome of right shoulder; M13.811 Other specified arthritis, right shoulder; Z01.812 Encounter for preprocedural laboratory examination

== ENCOUNTER → 2018-05-11 12:31 | Outpatient (CLI) | payer MEDICAID ==
[2017-12-25 11:16] VITALS: BMI 31.0
[~2018-05-11 12:31] MED LIST changes: +KEFLEX500 MG PO; +PERCOCET 7.5/321 TAB PO; +VISTARIL50 MG PO
== END | disposition home or self-care (01) ==
LOC: D.MRI 12:31
DX: M75.122 Complete rotator cuff tear or rupture of left shoulder, not specified as traumatic (principal)

== ENCOUNTER → 2018-06-10 17:54 | Outpatient (CLI) | payer MEDICAID ==
[2017-12-25 11:16] VITALS: BMI 31.0
== END | disposition home or self-care (01) ==
LOC: D.LABREF 17:54
PROVIDERS: ATTEND Orthopaedic Surgery
DX: M19.012 Primary osteoarthritis, left shoulder (principal)

== ENCOUNTER 2018-06-14 15:24 | Inpatient (IN) | payer MEDICAID ==
[~2018-06-14] VITALS: Ht 175.3 cm; Wt 96.4 kg
[2018-07-05 11:04] LABS: BASOPHILS 0.2 % (0-2); EOSINOPHILS 0.6 % (0-7); HEMATOCRIT 44.6 % (42.0-54.0); HEMOGLOBIN 15.1 g/dL (13.5-17.5); IMMATURE GRANULOCYTES 0.3 % (0-5); LYMPHOCYTES 23.8 % (15-50); MCH 31.1 pg (26.0-34.0); MCHC 33.9 g/dL (31.0-37.0); MCV 91.8 fL (80.0-100.0); MEAN PLATELET VOLUME 10.2 fL (7.4-10.4); MONOCYTES 6.1 % (2-11); PLATELET COUNT 300 10x3/uL (130-400); RBC 4.86 10x6/uL (4.20-6.10); RDW 13.3 % (11.5-14.5)
[2018-07-05 11:15] LABS: CALC OSMOLALITY 280 mosm/kg (275-300); CALCIUM 8.6 mg/dL (8.5-10.1); CARBON DIOXIDE 28.2 mmol/L (21.0-32.0); CHLORIDE - SERUM 105 mmol/L (98-107); CREATININE - SERUM 0.9 mg/dL (0.6-1.3); GLUCOSE 104 mg/dL (74-106); SODIUM 141 mmol/L (136-145); UREA NITROGEN 13 mg/dL (7-18); eGFR NON AFRICAN AMERICAN > 90 mL/min (90-120)
[2018-07-05 11:30] LABS: APTT 36.9 SECONDS (22.8-39.4); INR 0.98 (0.85-1.17); PROTIME 12.4 SECONDS (11.6-15.0)
[2018-07-05 11:48] LABS: APPEARANCE HAZY (CLEAR); BILIRUBIN NEGATIVE (NEGATIVE); COLOR YELLOW (YELLOW); GLUCOSE NEGATIVE (NEGATIVE); KETONE NEGATIVE (NEGATIVE); NITRITE NEGATIVE (NEGATIVE); PROTEIN NEGATIVE (NEGATIVE); SPECIFIC GRAVITY 1.015 (1.005-1.020); UROBILINOGEN NORMAL (NORMAL)
[2018-07-06 06:07] VITALS: BP 112/64; BMI 32.8
--- NOTE | 2018-07-06 08:29 | NUR ---
PLASMA BLADE SET 6/8 BOVIE PAD RIGHT THIGH [id number] EXP 11/26/2019
[2018-07-06 10:27] VITALS: BP 90/47
--- NOTE | 2018-07-06 10:53 | OP ---
PATIENT NAME: TEVIN REY JR MEDICAL RECORD: [id number] :56 LOCATION:[facility] ADMISSION DATE:07/06/18 SURGEON: WILLIAM FERNANDO DO DATE OF OPERATION: 07/06/2018 PROCEDURE PERFORMED: Left reverse total shoulder arthroplasty. PREOPERATIVE DIAGNOSIS: Left shoulder rotator cuff arthropathy. POSTOPERATIVE DIAGNOSIS: Left shoulder rotator cuff arthropathy. INDICATIONS: Mr. Rey is a 57-year-old male that hurt his shoulder approximately month and a half ago cutting wood and got an x-ray, which did not show anything bony wrong, but did show kind of high riding humeral head. MRI was done, which showed a complete tear of the supraspinatus with retraction to the joint and fatty atrophy into the supraspinatus muscle. I informed him that the best procedure would be probably reverse total shoulder and that the rotator cuff had been torn for quite some time with the high riding humeral head and the tear and the atrophy. I informed him of the risks and benefits of the procedure including infection, bleeding, damage to nerve and vessels, need for further surgery, and he signed the consent for the procedure. SURGEON: William Fernando DO. PC SUPPORT SPECIALIST: I was assisted by Toni Lynn, advanced nurse practitioner. He assisted with closing and holding retractors as well as reducing the shoulder. The procedure could not have been performed without his assistance. DESCRIPTION OF PROCEDURE: The patient received a block by anesthesia in the preoperative area, given 900 mg of clindamycin preoperatively, taken to the operative suite, laid in the supine position and positioned on the beach chair. He was sedated and LMA was placed. The beach chair was then positioned. The left shoulder was then prepped and draped in sterile fashion. Time-out was performed. Everyone was in agreement with correct side, site, patient, and procedure. Incision then began through the deltopec interval and down to the shoulder joint itself. Retractors were placed. The proximal centimeter of the pec tendon was released off the humerus for easier access. The biceps tendon was tenodesed at this site and then cut and followed up into the shoulder joint. The subscapularis tendon was then tagged and peeled off of the lesser tuberosity of the humerus. The humerus was then exposed, and the intramedullary guide was placed in the humerus. Then, the humeral head was cut. Once the humeral head was cut, the glenoid was exposed and the labrum was removed as well as the rest of the bicep tendon. The centering pin was then placed on the glenoid and then the reamer was used. The hole was then drilled for the glenosphere baseplate and measured to be a 40. A 40 screw was put in with the baseplate and had very good solid fixation. Three peripheral screws were then placed, 26 anterior superior, 18 inferior and posterior, and a 22 superior posterior. These had very good fixation and then the lateralized glenosphere was placed and secured into place. The humerus was then exposed and broached to a 5. This was not easily reduced, and we went down to a 4 stem and did a calcar planer to take off a little bit more humerus. This was then reduced and had very good tension on the conjoint tendon as well as the deltoid fibers and good motion. It was very stable. This was then dislocated and removed and a 5 broach was placed that fit better than the 4, the 4 came out easily. So, we decided to go with a 5 stem. This fit very well and the actual implant was put OPERATIVE REPORT [id number] TEVIN REY JR into place. A poly was impacted and then the shoulder was reduced with the assistance of a slide, could not have been done without the slide as it was very tight. The attention was then checked on the conjoint tendon and it had appropriate tension as well as the deltoid fibers. The shoulder was then thoroughly irrigated. Surgicel powder was placed as well as vancomycin and tobramycin powder and a quarter-inch drain was placed, brought out through the lateral and superior shoulder. The site was then closed with 2-0 Vicryl in inverted interrupted fashion, 4-0 Monocryl ran on the skin, and Prineo glue on the skin, and the drain was secured with 2 Tegaderms. Telfa and Tegaderm were then placed on the shoulder. The patient was then awakened and taken to recovery in stable condition, placed in a sling. COMPLICATIONS: None. BLOOD LOSS: Approximately 200 mL. TRANSINT:[id number] Voice Confirmation ID: [id number] DOCUMENT ID: [id number] WILLIAM FERNANDO DO at 8905 CC: [id number] DICTATION DATE: 07/06/18901 CASH APPLICATIONS SPECIALIST: 07/06/18 1033 ADM IN [facility] [address] [id number]
[2018-07-06 12:11] VITALS: BP 98/53
--- NOTE | 2018-07-06 14:22 | NUR ---
PT RESTING IN BED WITH EYES OPEN CALL LIGHT IN REACH WILL MONITER
[2018-07-06 16:04] VITALS: BP 101/90
--- NOTE | 2018-07-06 16:44 | NUR ---
PT RESTING IN BED WITH EYES OPEN CALL LIGHT IN REACH WILL MONITER
--- NOTE | 2018-07-06 18:17 | NUR ---
PT RESTING IN BED WITH EYES OPEN CALL LIGHT IN REACH NO PROBLEMS WILL MONITER
[2018-07-06 19:27] VITALS: BP 110/58; Ht 175.3 cm; Wt 96.4 kg
--- NOTE | 2018-07-06 20:03 | NUR ---
REC'D. CHGE OF SHIFT IN BED SITTING POSITION.SLING AND ICE TO LEFT SHOULDER.FINGERS AND NAIL BEDS PINK AND WARM BLANCHES WELL.WIGGLES FINGERS SLIGHTLY.GOOD RADIAL PULSE C/O SOME FEELING BACK OF LEFT HAND. WILL CONTINUE TO MONITOR NEUROVASCULAR STATUS AND FOLLOW CURRENT PLAN OF CARE
[2018-07-06 21:21] VITALS: BP 110/57
[2018-07-07 04:39] VITALS: BP 130/64
--- NOTE | 2018-07-07 07:25 | NUR ---
I CONCUR WITH ANNEALING FURNACE TENDER ASSESSMENT.
--- NOTE | 2018-07-07 07:30 | NUR ---
REC'D IN WALKING ROUND AWAKE AND ALERT. RESP EVEN AND UNLABORED WITH NO DISTRESS NOTED. CAN EXPRESS NEEDS AND WANTS. SLING NOTED TO LEFT SHOULDER. ASSESSMENT COMPLETED. C/L IN REACH AT BEDSIDE.
[2018-07-07 07:40] LABS: HEMATOCRIT 37.8 % (42.0-54.0); HEMOGLOBIN 12.6 g/dL (13.5-17.5); MCH 30.5 pg (26.0-34.0); MCHC 33.3 g/dL (31.0-37.0); MCV 91.5 fL (80.0-100.0); MEAN PLATELET VOLUME 10.7 fL (7.4-10.4); PLATELET COUNT 269 10x3/uL (130-400); RBC 4.13 10x6/uL (4.20-6.10); RDW 13.5 % (11.5-14.5); WBC 11.7 10x3/uL (4.8-10.8)
[2018-07-07 09:35] VITALS: BP 128/54
[2018-07-07 11:20] LABS: BASOPHILS 0.1 % (0-2); EOSINOPHILS 0.1 % (0-7); IMMATURE GRANULOCYTES 0.3 % (0-5); LYMPHOCYTES 16.4 % (15-50); MONOCYTES 13.7 % (2-11); NEUTROPHILS 69.4 % (40-80)
[2018-07-07 11:21] LABS: ALKALINE PHOSPHATASE 81 U/L (46-116); ALT (SGPT) 22 U/L (10-68); BILIRUBIN - TOTAL 0.61 mg/dL (0.2-1.3); CALC OSMOLALITY 283 mosm/kg (275-300); CALCIUM 7.9 mg/dL (8.5-10.1); CARBON DIOXIDE 25.9 mmol/L (21.0-32.0); CHLORIDE - SERUM 107 mmol/L (98-107); CREATININE - SERUM 0.8 mg/dL (0.6-1.3); GLUCOSE 125 mg/dL (74-106); POTASSIUM - SERUM 3.7 mmol/L (3.5-5.1); SODIUM 142 mmol/L (136-145); UREA NITROGEN 13 mg/dL (7-18); eGFR NON AFRICAN AMERICAN > 90 mL/min (90-120)
[2018-07-07 13:51] VITALS: BP 116/60
[2018-07-07] MEDS ORDERED: DURICEF500 MG PO (14:49)
[2018-07-07] MEDS ORDERED: OXYCODONE HCL10 MG PO (14:49)
--- NOTE | 2018-07-07 15:40 | MORECARE ---
CASE MANAGEMENT DISCHARGE SUMMARY PATIENT: TEVIN REY JR UNIT: [id number] ADM DATE: 07/06/18 AGE: 57 : 56 SEX: M ROOM/BED: D.2236 AUTHOR: ARMIN MA PHYSICIAN: REFERRING PHYSICIAN: NAHOMY FERNANDO DO DATE OF SERVICE: 07/07/18 Discharge Plan Patient Name: [facility]EVIN REY [facility] [facility] 1960 Planned Disposition: Home Anticipated Discharge Date: 07/07/18 Discharge Date: Expected LOS: 1 Initial Reviewer: [email or web address] Initial Review Date: 07/07/2018 Generated: 07/07/18 4:40 pm DCPIA - Discharge Planning Initial Assessment Updated by [email or web address]: Adore Seay on 07/07/18 3:40 pm * Is the patient Alert and Oriented? Yes * How many steps to enter\exit or inside your home? 0/0 * PCP Faro * [facility] [address] * Preadmission Environment Home with Family * ADLs Independent * Equipment Other * Other Equipment Sling * List name and contact numbers for known caregivers / representatives who currently or will assist patient after discharge: Hodan Rey - - [phone] * Verbal permission to speak to the caregivers and representatives has been obtained from the patient. Yes * Community resources currently utilized None * Additional services required to return to the preadmission environment? No * Can the patient safely return to the preadmission environment? Yes * Has this patient been hospitalized within the prior 30 days at any hospital? No Patient Name: TEVIN REY Page [id number] at 1540 All edits/amendments must be made on the electronic document DICTATION DATE: 07/07/18 153 SENIOR BUSINESS ANALYST: BRENNON 07/07/18 153 RPT#: [id number] DC DATE: STATUS: ADM IN [facility] [address] [place] [address] END OF REPORT
--- NOTE | 2018-07-07 15:48 | MORECARE ---
CASE MANAGEMENT DISCHARGE SUMMARY PATIENT: TEVIN REY JR UNIT: [id number] ADM DATE: 07/06/18 AGE: 57 : 56 SEX: M ROOM/BED: D.2236 AUTHOR: ANIL,DOC PHYSICIAN: REFERRING PHYSICIAN: NAHOMY FERNANDO DO DATE OF SERVICE: 07/07/18 Discharge Plan Patient Name: TEVIN REY Facility: [facility]:[place] : 1960 Planned Disposition: Home Anticipated Discharge Date: 07/07/18 Discharge Date: Expected LOS: 1 Initial Reviewer: [email or web address] Initial Review Date: 07/07/2018 Generated: 07/07/18 4:48 pm Comments DCP- Discharge Planning Updated by [email or web address]: Adore Seay on 07/07/18 2:[address] Patient Name: TEVIN REY Admission Status: Elective Accout number: [id number] Admission Date: 07-06-2018 : 1960 Admission Diagnosis: Attending: NAHOMY FERNANDO Current LOS: 1 Anticipated DC Date: 07-07-2018 Planned Disposition: Home Primary Insurance: [facility] [employer] [facility] Discharge Planning Comments: CM met with patient to complete initial dc planning assessment. CM educated patient on the CM role and verbal consent given by patient to complete assessment. Patient lives at home with his . At discharge patient plans to return and feels this is a safe discharge. CM discussed availability of home health, rehab services, and medical equipment. Patient denied known discharge needs at this time. CM will continue to follow and will assist as needed with dc plans/needs. Warehouse Packaging Supervisor: Adore Seay DCPIA - Discharge Planning Initial Assessment Updated by [email or web address]: Adore Seay on 07/07/18 3:40 pm * Is the patient Alert and Oriented? Yes * How many steps to enter\exit or inside your home? 0/0 * PCP Yan * Pharmacy [facility] [address] * Preadmission Environment Home with Family * ADLs Independent * Equipment Other * Other Equipment Sling * List name and contact numbers for known caregivers / representatives who currently or will assist patient after discharge: Hodan Rey - - [phone] * Verbal permission to speak to the caregivers and representatives has been obtained from the patient. Yes * Community resources currently utilized None * Additional services required to return to the preadmission environment? No * Can the patient safely return to the preadmission environment? Yes * Has this patient been hospitalized within the prior 30 days at any hospital? No Last DP export: 07/07/18 2:40 pm Patient Name: TEVIN REY Page [id number] at 1548 All edits/amendments must be made on the electronic document DICTATION DATE: 07/07/18 1548 WELT EDGE ROUNDER: DM 07/07/188 RPT#: [id number] DC DATE: STATUS: ADM IN [facility] [address] [place] [address] END OF REPORT
--- NOTE | 2018-07-07 18:00 | NUR ---
DC HOME AT THIS TIME VOICE UNDERSTANDING OF DC ORDERS. IV DC. NO C/O NOTED UPON DEPARTURE.
[2018-07-07 18:07] VITALS: BP 110/55
--- NOTE | 2018-07-09 00:12 | MORECARE ---
CASE MANAGEMENT DISCHARGE SUMMARY PATIENT: TEVIN REY JR UNIT: [id number] ADM DATE: 07/06/18 AGE: 57 : 56 SEX: M ROOM/BED: D.2236 AUTHOR: ANIL,DOC PHYSICIAN: REFERRING PHYSICIAN: NAHOMY FERNANDO DO DATE OF SERVICE: 07/09/18 Discharge Plan Patient Name: TEVIN REY Facility: [facility]:[place] : 1960 Planned Disposition: Home Anticipated Discharge Date: 07/07/18 Discharge Date: 07/07/2018 Expected LOS: 1 Initial Reviewer: [email or web address] Initial Review Date: 07/07/2018 Generated: 07/09/18 1:12 am DCP- Discharge Planning Updated by [email or web address]: Adore Seay on 07/07/18 2:[address] Patient Name: TEVIN REY Admission Status: Elective Accout number: [id number] Admission Date: 07-06-2018 : 1960 Admission Diagnosis: Attending: NAHOMY FERNANDO Current LOS: 1 Anticipated DC Date: 07-07-2018 Planned Disposition: Home Primary Insurance[facility] Discharge Planning Comments: CM met with patient to complete initial dc planning assessment. CM educated patient on the CM role and verbal consent given by patient to complete assessment. Patient lives at home with his . At discharge patient plans to return and feels this is a safe discharge. CM discussed availability of home health, rehab services, and medical equipment. Patient denied known discharge needs at this time. CM will continue to follow and will assist as needed with dc plans/needs. Cathodic Protection Technician: Adore Seay DCPIA - Discharge Planning Initial Assessment Updated by [email or web address]: Adore Seay on 07/07/18 3:40 pm * Is the patient Alert and Oriented? Yes * How many steps to enter\exit or inside your home? 0/0 * PCP Yan * Pharmacy [facility] [address] * Preadmission Environment Home with Family * ADLs Independent * Equipment Other * Other Equipment Sling * List name and contact numbers for known caregivers / representatives who currently or will assist patient after discharge: Hodan Rey - - [phone] * Verbal permission to speak to the caregivers and representatives has been obtained from the patient. Yes * Community resources currently utilized None * Additional services required to return to the preadmission environment? No * Can the patient safely return to the preadmission environment? Yes * Has this patient been hospitalized within the prior 30 days at any hospital? No Last DP export: 07/07/18 2:48 pm Patient Name: TEVIN REY Page [id number] at 0012 All edits/amendments must be made on the electronic document DICTATION DATE: 07/09/1811 SALES ACCOUNT DIRECTOR: BRENNON 07/09/1811 RPT#: [id number] DC DATE:07/07/18 STATUS: DIS IN [facility] [address] [place] [address] END OF REPORT
== END 2018-07-07 18:00 | disposition home or self-care (01) | DRG 483 ==
LOC: D.MS 07-06 05:20 → D.SDCHOLD 07-06 05:20 → D.MS 07-06 09:44
PROVIDERS: Family Medicine; ADMIT Orthopaedic Surgery; ATTEND Orthopaedic Surgery
PROC: 0RRK00Z Replacement of Left Shoulder Joint with Reverse Ball and Socket Synthetic Substitute, Open Approach (ICD-10-PCS; principal; 2018-07-06 07:30)
DX: M75.102 Unspecified rotator cuff tear or rupture of left shoulder, not specified as traumatic (principal); D62 Acute posthemorrhagic anemia; F17.213 Nicotine dependence, cigarettes, with withdrawal; I10 Essential (primary) hypertension; I25.10 Atherosclerotic heart disease of native coronary artery without angina pectoris; K57.90 Diverticulosis of intestine, part unspecified, without perforation or abscess without bleeding; G47.00 Insomnia, unspecified; F41.9 Anxiety disorder, unspecified

== ENCOUNTER 2019-11-02 09:11 | Emergency (ER) | payer BC ==
[~2019-11-02] VITALS: Ht 175.3 cm; Wt 101.4 kg
[~2019-11-02 09:11] MED LIST changes: +DURICEF500 MG PO; +OXYCODONE HCL10 MG PO
[2019-11-02 09:17] VITALS: Ht 175.3 cm; Wt 101.4 kg
[2019-11-02] MEDS ORDERED: HYDROCODON-ACE1 EA10 PO (10:29)
[2019-11-02 11:07] VITALS: BP 147/80
== END 2019-11-02 11:08 | disposition home or self-care (01) ==
LOC: D.ER 09:11
DX: S22.39XA Fracture of one rib, unspecified side, initial encounter for closed fracture (principal); M79.18 Myalgia, other site; S29.012A Strain of muscle and tendon of back wall of thorax, initial encounter; I10 Essential (primary) hypertension; J45.909 Unspecified asthma, uncomplicated; Z72.0 Tobacco use; W22.8XXA Striking against or struck by other objects, initial encounter; Y93.9 Activity, unspecified; Y92.9 Unspecified place or not applicable